=== PATIENT | male | born 1980 | race Caucasian/White ===

== ENCOUNTER 2020-01-22 20:04 | Observation (INO) | payer OTHER ==
[2020-01-22] MEDS ORDERED: ALBUTEROL HFA INHALER INHALATION STA (20:26)
--- NOTE | 2020-01-22 20:26 | ED ---
Fever HPI - General Chief Complaint: Fever Stated Complaint: Fever/Cough/SOB Time Seen by Provider: 01/22/20 20:18 Source: patient, RN notes reviewed, old records reviewed Mode of arrival: wheelchair Limitations: no limitations - History of Present Illness Initial Comments: This patient's a 39-year-old male with history of obesity presents emergency dep artment today with complaints of chest pain shortness of breath and fever. Patient reports symptoms became worse today. Patient reports that he is being treated for an abscess underneath his right axilla and has been on 2 doses of Bactrim. Patient reports that he is concerned that he may have Covid 19 infection. He reports that he does not know any known exposures to covid that at this time. Patient reports that he did take Motrin and Tylenol earlier today his last dose of Tylenol was in our prior to arrival. Patient reports he is a nonsmoker. - Related Data Home Medications Medication Instructions Recorded Confirmed Cyclobenzaprine [Flexeril] 10 mg PO TID PRN 01/22/20 01/22/20 Ergocalciferol [Vitamin D2] 50,000 unit PO MO 01/22/20 01/22/20 Ibuprofen [Motrin] 800 mg PO TID PRN 01/22/20 01/22/20 Levothyroxine Sodium [Synthroid] 50 mcg PO DAILY 01/22/20 01/22/20 Sulfamethox-Tmp 800-160Mg [Bactrim 1 tab PO BID 01/22/20 01/22/20 DS 800-160 mg] buPROPion XL [Wellbutrin Xl] 300 mg PO DAILY 01/22/20 01/22/20 Allergies Allergy/AdvReac Type Severity Reaction Status Date / Time No Known Allergies Allergy Verified 01/22/20 21:55 Review of Systems ROS Statement: Those systems with pertinent positive or pertinent negative responses have been documented in the HPI. ROS Other: All systems not noted in ROS Statement are negative. Past Medical History Past Medical History: Thyroid Disorder History of Any Multi-Drug Resistant Organisms: None Reported Past Surgical History: No Surgical Hx Reported Additional Past Surgical History / Comment(s): wisdom teeth extraction Past Psychological History: Bipolar Smoking Status: Current some day smoker Past Alcohol Use History: Occasional Past Drug Use History: Marijuana General Exam - General Exam Comments Initial Comments: 39-year-old male. Alert and oriented 3. Patient is diaphoretic. Somewhat la bored breathing. Patient is morbidly obese. Limitations: no limitations General appearance: alert, in no apparent distress Head exam: Present: atraumatic, normocephalic, normal inspection Eye exam: Present: normal appearance, PERRL, EOMI. Absent: scleral icterus, conjunctival injection, periorbital swelling ENT exam: Present: normal exam, mucous membranes moist Neck exam: Present: normal inspection. Absent: tenderness, meningismus, lymphadenopathy Respiratory exam: Present: wheezes, decreased breath sounds, other (Patient has a small area of erythema and right axilla with abscess. He reports he's had some drainage.. ). Absent: normal lung sounds bilaterally, respiratory distress, rales, rhonchi, stridor Cardiovascular Exam: Present: regular rate, normal rhythm, normal heart sounds. Absent: systolic murmur, diastolic murmur, rubs, gallop, clicks GI/Abdominal exam: Present: soft, normal bowel sounds. Absent: distended, tenderness, guarding, rebound, rigid Extremities exam: Present: normal inspection, full ROM, normal capillary refill. Absent: tenderness, pedal edema, joint swelling, calf tenderness Back exam: Present: normal inspection Neurological exam: Present: alert, oriented X3, CN II-XII intact Psychiatric exam: Present: normal affect, normal mood Skin exam: Present: warm, dry, intact, normal color. Absent: rash Course Vital Signs 01/22/20 01/22/20 01/22/20 20:13 22:00 23:05 Temperature 103 F H 100.4 F H Pulse Rate 121 H 94 102 H Respiratory 22 20 20 Rate Blood Pressure 158/64 115/86 151/85 O2 Sat by Pulse 98 98 97 Oximetry Medical Decision Making - Medical Decision Making 39-year-old male arrives to the emergency department with chest pain shortness of breath and a fever 103 upon arrival. He is given Motrin Tylenol prior to arrival. His symptoms started today. At this time patient's chest x-ray shows evidence of infiltrates versus atelectasis. Rapid Covid 19 test is negative. Patient has a negative d-dimer. Patient continued to be somewhat tachycardic 110 bpm his fever is breaking. Patient has a white blood cell count of 17,000. With concern for pneumonia and sepsis with labs and vital signs Patient was started on Rocephin and azithromycin. I did discuss with the Patient he could still likely have a viral pneumonia. Patient case discussed with Dr. Melo, room recommends admission with patient's clinical history and comorbidity of obesity. Pt IV is in R foot due to poor vascular access. Dr. Melo discussed with Dr. Nielsen in AM. - Lab Data Result diagrams: 01/22/20 21:48 01/22/20 21:48 Lab Results 01/22/20 01/22/20 01/22/20 Range/Units 21:01 21:48 21:48 WBC 17.9 H (3.8-10.6) k/uL RBC 4.68 (4.30-5.90) m/uL Hgb 14.6 (13.0-17.5) gm/dL Hct 42.4 (39.0-53.0) % MCV 90.5 (80.0-100.0) fL MCH 31.1 (25.0-35.0) pg MCHC 34.4 (31.0-37.0) g/dL RDW 13.2 (11.5-15.5) % Plt Count 323 (150-450) k/uL MPV 7.0 Neutrophils % 80 % Lymphocytes % 12 % Monocytes % 6 % Eosinophils % 1 % Basophils % 0 % Neutrophils # 14.2 H (1.3-7.7) k/uL Lymphocytes # 2.1 (1.0-4.8) k/uL Monocytes # 1.1 H (0-1.0) k/uL Eosinophils # 0.1 (0-0.7) k/uL Basophils # 0.1 (0-0.2) k/uL PT (9.0-12.0) sec INR (<1.2) APTT (22.0-30.0) sec D-Dimer (<0.60) mg/L FEU Sodium (137-145) mmol/L Potassium (3.5-5.1) mmol/L Chloride (98-107) mmol/L Carbon Dioxide (22-30) mmol/L Anion Gap mmol/L BUN (9-20) mg/dL Creatinine (0.66-1.25) mg/dL Est GFR (CKD-EPI)AfAm (>60 ml/min/1.73 sqM) Est GFR (CKD-EPI)NonAf (>60 ml/min/1.73 sqM) Glucose (74-99) mg/dL Plasma Lactic Acid David 1.2 (0.7-2.0) mmol/L Calcium (8.4-10.2) mg/dL Total Bilirubin (0.2-1.3) mg/dL AST (17-59) U/L ALT (4-49) U/L Alkaline Phosphatase (38-126) U/L Lactate Dehydrogenase (313-618) U/L C-Reactive Protein (<10.0) mg/L Total Protein (6.3-8.2) g/dL Albumin (3.5-5.0) g/dL Coronavirus (PCR) Not Detected (Not Detectd) 01/22/20 01/22/20 Range/Units 21:48 21:48 WBC (3.8-10.6) k/uL RBC (4.30-5.90) m/uL Hgb (13.0-17.5) gm/dL Hct (39.0-53.0) % MCV (80.0-100.0) fL MCH (25.0-35.0) pg MCHC (31.0-37.0) g/dL RDW (11.5-15.5) % Plt Count (150-450) k/uL MPV Neutrophils % % Lymphocytes % % Monocytes % % Eosinophils % % Basophils % % Neutrophils # (1.3-7.7) k/uL Lymphocytes # (1.0-4.8) k/uL Monocytes # (0-1.0) k/uL Eosinophils # (0-0.7) k/uL Basophils # (0-0.2) k/uL PT 11.4 (9.0-12.0) sec INR 1.1 (<1.2) APTT 26.9 (22.0-30.0) sec D-Dimer 0.35 (<0.60) mg/L FEU Sodium 133 L (137-145) mmol/L Potassium 4.0 (3.5-5.1) mmol/L Chloride 101 (98-107) mmol/L Carbon Dioxide 26 (22-30) mmol/L Anion Gap 6 mmol/L BUN 9 (9-20) mg/dL Creatinine 0.95 (0.66-1.25) mg/dL Est GFR (CKD-EPI)AfAm >90 (>60 ml/min/1.73 sqM) Est GFR (CKD-EPI)NonAf >90 (>60 ml/min/1.73 sqM) Glucose 115 H (74-99) mg/dL Plasma Lactic Acid David (0.7-2.0) mmol/L Calcium 9.1 (8.4-10.2) mg/dL Total Bilirubin 0.9 (0.2-1.3) mg/dL AST 24 (17-59) U/L ALT 52 H (4-49) U/L Alkaline Phosphatase 96 (38-126) U/L Lactate Dehydrogenase 651 H (313-618) U/L C-Reactive Protein 81.3 H (<10.0) mg/L Total Protein 7.2 (6.3-8.2) g/dL Albumin 3.9 (3.5-5.0) g/dL Coronavirus (PCR) (Not Detectd) Disposition Clinical Impression: Pneumonia, Sepsis Disposition: ADMITTED IP TO THIS HOSP Condition: Stable Is patient prescribed a controlled substance at d/c from ED?: No Referrals: None,Stated [REFERRING] - 1-2 days
[2020-01-22] MEDS ORDERED: SODIUM CHLORIDE 0.9% 1,000 ML IV ONE (20:28)
[2020-01-22] MEDS ORDERED: IBUPROFEN 600 MG TAB PO STA (20:51)
--- NOTE | 2020-01-22 21:18 | XR ---
EXAMINATION TYPE: XR chest 1V portable DATE OF EXAM: 01/22/2020 COMPARISON: NONE HISTORY: Fever and cough. TECHNIQUE: Single frontal view of the chest is obtained. FINDINGS: There are mild bibasilar hazy opacities. No significant pleural effusion, or pneumothorax seen. The cardiac silhouette size is within normal limits. The osseous structures are intact. IMPRESSION: Mild atelectasis versus infiltrates.
[2020-01-22 22:02] LABS: Basophils # (A) 0.1 k/uL (0-0.2); Basophils % (A) 0 %; Eosinophils # (A) 0.1 k/uL (0-0.7); Eosinophils % (A) 1 %; HCT 42.4 % (39.0-53.0); HGB 14.6 gm/dL (13.0-17.5); Lymphocytes # (A) 2.1 k/uL (1.0-4.8); Lymphocytes % (A) 12 %; MCH 31.1 pg (25.0-35.0); MCHC 34.4 g/dL (31.0-37.0); MCV 90.5 fL (80.0-100.0); Monocytes # (A) 1.1 k/uL (0-1.0); Monocytes % (A) 6 %; Neutrophils # (A) 14.2 k/uL (1.3-7.7); Neutrophils % (A) 80 %; Platelet Count 323 k/uL (150-450); RBC 4.68 m/uL (4.30-5.90); RDW 13.2 % (11.5-15.5); WBC 17.9 k/uL (3.8-10.6)
[2020-01-22 22:09] LABS: ALT 52 U/L (4-49); AST 24 U/L (17-59); African American GFR (CKD) >90 (>60 ml/min/1.73 sqM); Albumin 3.9 g/dL (3.5-5.0); Alkaline Phosphatase 96 U/L (38-126); Anion Gap 6 mmol/L; Blood Urea Nitrogen 9 mg/dL (9-20); C Reactive Protein 81.3 mg/L (<10.0); Calcium 9.1 mg/dL (8.4-10.2); Carbon Dioxide 26 mmol/L (22-30); Chloride 101 mmol/L (98-107); Glucose 115 mg/dL (74-99); LDH 651 U/L (313-618); Non-African American GFR(CKD) >90 (>60 ml/min/1.73 sqM); Sodium 133 mmol/L (137-145); Total Bilirubin 0.9 mg/dL (0.2-1.3); Total Protein 7.2 g/dL (6.3-8.2)
[2020-01-22] MEDS ORDERED: cefTRIAXone IN SWFI 1,000 MG/10 ML SYRINGE IVP STA (22:23)
[2020-01-22 22:41] LABS: D-Dimer 0.35 mg/L FEU (<0.60); INR 1.1 (<1.2); Partial Thromboplastin Time 26.9 sec (22.0-30.0); Prothrombin Time 11.4 sec (9.0-12.0)
[2020-01-23] MEDS ORDERED: AZITHROMYCIN 500 MG in SODIUM CHLORIDE 0.9% 250 ML IVPB STA ×2
[2020-01-23] MEDS ORDERED: ALBUTEROL NEBULIZED 2.5 MG/3 ML INHALATION PRN
[2020-01-23] MEDS ORDERED: PNEUMONIA PROTOCOL UTILIZED 1 EACH MISC PO PRN
[2020-01-23] MEDS ORDERED: SODIUM CHLORIDE 0.9% 2,000 ML IV ONE (00:06)
[2020-01-23] MEDS: SODIUM CHLORIDE 0.9% 1,000 ML IV SCH ×4 (00:38→23:05)
[2020-01-23 09:52] LABS: Ferritin 180.1 ng/mL (22.0-322.0)
[2020-01-23] MEDS ORDERED: CYCLOBENZAPRINE 10 MG TAB PO PRN (10:04)
[2020-01-23] MEDS ORDERED: SULFAMETHOX-TMP 800-160MG 1 EACH TAB PO SCH (10:15)
[2020-01-23] MEDS: LEVOTHYROXINE 50 MCG TAB PO SCH (10:49)
[2020-01-23] MEDS: buPROPion XL 300 MG TAB.ER.24H PO SCH (10:50)
[2020-01-23] MEDS ORDERED: AMPICILLIN-SULBACTAM 1.5 GM in SODIUM CHLORIDE 0.9% 50 ML IVPB SCH (13:45)
[2020-01-23] MEDS: ENOXAPARIN 40 MG/0.4 ML SYRINGE SQ SCH (16:43)
[2020-01-23] MEDS ORDERED: VANCOMYCIN IV PER PHARMACY 1 EACH MISC MISCELLANE PRN (16:56)
--- NOTE | 2020-01-23 17:08 | P.HPIM ---
History of Present Illness H&P Date: 01/23/20 Chief Complaint: Fever History of presenting complaint: This is a 39-year-old patient who follows with Dr. Ferreira. Chronic stable medical conditions include bipolar, hypothyroid, lower back pain, spasms in the lower back. Patient habits abscess in the right arm. And has been on Bactrim DS for 3 days. Given to the family doctor. Patient presents with a fever of 104 chills at home activity became confused at home. Slight headache. No change in smell or taste. No diarrhea. Quite tender in the right armpit. Patient does smoke cigarettes. Occasional marijuana. Review of systems: GEN.: Fever chills EYES: None HEENT: None NECK: None RESPIRATORY: None CARDIOVASCULAR: None GASTROINTESTINAL: None GENITOURINARY: None MUSCULOSKELETAL: None LYMPHATICS: None HEMATOLOGICAL: None PSYCHIATRY: [Confused at home NEUROLOGICAL: None Past medical history to include: Bipolar disorder, hypothyroid, low back pain, back pain and spasms Social history: Lives with his girlfriend. Unemployed. Smokes up pack of cigarettes every week. Occasional marijuana. Occasional alcohol. Physical examination: VITAL SIGNS: 103, 121, 22, 1 58 / 64, 98% room air GENERAL: BMI 59, laying in bed, tired appearing awake. EYES: Pupils equal. Conjunctiva normal. HEENT: External appearance of nose and ears normal, oral cavity grossly normal. NECK: JVD unable to assess; masses not palpable. CHEST wall: Right armpit, abscess, boil HEART: First and second heart sounds are normal; no edema. LUNGS: Respiratory rate normal; distant breath sounds. ABDOMEN: Soft, nontender, liver spleen not palpable, no masses palpable. PSYCH: Alert and oriented x3; mood and affect normal. NEUROLOGICAL: Cranial nerves grossly intact; no facial asymmetry, power and sensation grossly intact. LYMPHATICS: No lymph nodes palpable in the axilla and neck INVESTIGATIONS, reviewed in the clinical context: White count 7.9 hemoglobin 14.6 platelets 323 increased neutrophils potassium 4.0 creatinine 0.95 CRP 81.3 pro-calcitonin 0.11 Coronavirus P/Cr-not detected EKG tracing personally reviewed by me-normal sinus rhythm Chest x-ray film personally reviewed by me-questionable infiltrate, decreased penetration Assessment: -This is a patient was presented with a septic picture some delirium likely from his abscess in the right armpit for which she has been on Bactrim for 3 days. Patient does not really have any symptoms. -Morbid obesity BMI 59 -Bipolar disorder -Hypothyroid -Chronic low back pain -Lower back muscle spasms -Chronic nicotine dependence patient cigarette smoker Plan: Patient be started on vancomycin. Home medications to be resumed. We'll send a blood cultures. General surgery to be consulted. DVT prophylaxis. Past Medical History Past Medical History: Thyroid Disorder History of Any Multi-Drug Resistant Organisms: None Reported Past Surgical History: No Surgical Hx Reported Additional Past Surgical History / Comment(s): wisdom teeth extraction Past Psychological History: Bipolar Smoking Status: Current some day smoker Past Alcohol Use History: Occasional Past Drug Use History: Marijuana Medications and Allergies Home Medications Medication Instructions Recorded Confirmed Type Cyclobenzaprine [Flexeril] 10 mg PO TID PRN 01/22/20 01/22/20 History Ergocalciferol [Vitamin D2] 50,000 unit PO MO 01/22/20 01/22/20 History Ibuprofen [Motrin] 800 mg PO TID PRN 01/22/20 01/22/20 History Levothyroxine Sodium [Synthroid] 50 mcg PO DAILY 01/22/20 01/22/20 History Sulfamethox-Tmp 800-160Mg [Bactrim 1 tab PO BID 01/22/20 01/22/20 History DS 800-160 mg] buPROPion XL [Wellbutrin Xl] 300 mg PO DAILY 01/22/20 01/22/20 History Allergies Allergy/AdvReac Type Severity Reaction Status Date / Time No Known Allergies Allergy Verified 01/22/20 21:55 Physical Exam Vitals: Vital Signs Temp Pulse Resp BP Pulse Ox 01/23/20 08:07 99.6 F 102 H 19 119/78 98 01/23/20 06:00 102 H 19 129/79 98 01/23/20 05:00 99 20 155/81 97 01/23/20 03:00 105 H 20 141/96 98 01/23/20 02:00 97.9 F 102 H 20 140/84 98 01/23/20 01:00 98.3 F 104 H 20 135/103 97 01/23/20 00:00 91 20 160/104 97 01/22/20 23:05 100.4 F H 102 H 20 151/85 97 01/22/20 22:00 94 20 115/86 98 01/22/20 20:13 103 F H 121 H 22 158/64 98 Intake and Output 01/22/20 01/23/20 01/23/20 22:59 06:59 14:59 Other: Weight 197.313 kg Results CBC & Chem 7: 01/22/20 21:48 01/22/20 21:48 Labs: Abnormal Lab Results - Last 24 Hours (Table) 01/22/20 01/22/20 Range/Units 21:48 21:48 WBC 17.9 H (3.8-10.6) k/uL Neutrophils # 14.2 H (1.3-7.7) k/uL Monocytes # 1.1 H (0-1.0) k/uL Sodium 133 L (137-145) mmol/L Glucose 115 H (74-99) mg/dL ALT 52 H (4-49) U/L Lactate Dehydrogenase 651 H (313-618) U/L C-Reactive Protein 81.3 H (<10.0) mg/L
--- NOTE | 2020-01-23 17:10 | P.CNPUL ---
History of Present Illness Consult date: 01/23/20 Reason for consult: dyspnea History of present illness: This is a 39-year-old patient. I was asked even with this patient for pneumonia and shortness of breath. The patient is morbidly obese. He has a a body mass index of 59. He has chronically short of breath and he attributes this to his obesity. He was also having a problem with a right axillary abscess for which the patient was taking Bactrim on outpatient basis. He came to the hospital and he was febrile with a temperature of 103F. The patient was febrile. Apparently the abscess that was on limited right axillary been treated with a course of Bactrim to his primary care physician. He was concerned about her coronavirus community related infection. He was checked in the emergency department testing was essentially negative. His chest x-ray shows no acute abnormalities. Is currently pulse oximetry 9497% on room air oxygen. He is smoking cigarettes on and off. He denies having any obstructive sleep apnea although he does have the typical features. No 70 chronic lung disease. No recurrent pneumonias. No reported aspiration. He has history of hypothyroidism. His white cell count is 17.4 with hemoglobin 14.6. Normal lymphopenia. Platelet counts are within normal at 323. Correlation is within normal limits and the patient had a d-dimer of 0.3. The electrolytes are all within normal limits. His lactic acid level was at 1.2 and later on the abdominal 1.1. His troponin level is elevated at 0.11 and a CRP of 81 with an LDH of 651. AST and ALP were essentially within normal limits with a bilirubin of 0.9. He is hemodynamically stable. No tachycardia. No hypotension. Review of Systems Constitutional: Reports daytime sleepiness, Reports fever Eyes: denies as per HPI, denies blurred vision, denies bulging eye, denies decreased vision, denies diplopia, denies discharge, denies dry eye, denies irritation, denies itching, denies pain, denies photophobia, denies loss of peripheral vision, denies loss of vision, denies tunnel vision/blind spots Ears: deny: decreased hearing, ear discharge, earache, tinnitus Ears, nose, mouth and throat: Reports as per HPI Breasts: absent: as per HPI, gynecomastia Cardiovascular: Reports as per HPI, Reports decreased exercise tolerance Respiratory: Reports as per HPI Gastrointestinal: Reports as per HPI Genitourinary: Reports as per HPI Musculoskeletal: Reports as per HPI Musculoskeletal: absent: ankle pain, ankle stiffness, ankle swelling, as per HPI, elbow pain, elbow stiffness, elbow swelling, foot pain, foot stiffness, foot swelling, hand pain, hand stiffness, hand swelling, hip pain, hip stiffness, hip swelling, knee pain, knee stiffness, knee swelling, shoulder pain, shoulder stiffness, shoulder swelling, wrist pain, wrist stiffness, wrist swelling Integumentary: Reports as per HPI (Axillary abscess) Neurological: Reports as per HPI Psychiatric: Reports as per HPI Endocrine: Reports as per HPI Hematologic/Lymphatic: Reports as per HPI Past Medical History Past Medical History: Thyroid Disorder Additional Past Medical History / Comment(s): bipolar, ADHD, obesity History of Any Multi-Drug Resistant Organisms: None Reported Past Surgical History: No Surgical Hx Reported Additional Past Surgical History / Comment(s): wisdom teeth extraction Past Psychological History: Bipolar Smoking Status: Current some day smoker Past Alcohol Use History: Occasional Past Drug Use History: Marijuana Medications and Allergies Home Medications Medication Instructions Recorded Confirmed Type Cyclobenzaprine [Flexeril] 10 mg PO TID PRN 01/22/20 01/22/20 History Ergocalciferol [Vitamin D2] 50,000 unit PO MO 01/22/20 01/22/20 History Ibuprofen [Motrin] 800 mg PO TID PRN 01/22/20 01/22/20 History Levothyroxine Sodium [Synthroid] 50 mcg PO DAILY 01/22/20 01/22/20 History Sulfamethox-Tmp 800-160Mg [Bactrim 1 tab PO BID 01/22/20 01/22/20 History DS 800-160 mg] buPROPion XL [Wellbutrin Xl] 300 mg PO DAILY 01/22/20 01/22/20 History Allergies Allergy/AdvReac Type Severity Reaction Status Date / Time No Known Allergies Allergy Verified 01/22/20 21:55 Physical Exam Vitals: Vital Signs Temp Pulse Pulse Resp BP BP Pulse Ox 01/23/20 16:26 99.8 F H 117 H 18 135/85 95 01/23/20 15:27 99.6 F 94 19 149/79 98 01/23/20 15:00 94 19 149/79 98 01/23/20 14:00 94 19 98 01/23/20 13:00 94 19 139/103 98 01/23/20 12:00 94 19 139/103 98 01/23/20 11:00 98 19 135/77 98 01/23/20 10:00 102 H 19 143/84 98 01/23/20 09:00 18 98 01/23/20 08:07 99.6 F 102 H 19 119/78 98 01/23/20 06:00 102 H 19 129/79 98 01/23/20 05:00 99 20 155/81 97 01/23/20 03:00 105 H 20 141/96 98 01/23/20 02:00 97.9 F 102 H 20 140/84 98 01/23/20 01:00 98.3 F 104 H 20 135/103 97 01/23/20 00:00 91 20 160/104 97 01/22/20 23:05 100.4 F H 102 H 20 151/85 97 01/22/20 22:00 94 20 115/86 98 01/22/20 20:13 103 F H 121 H 22 158/64 98 Intake and Output 01/23/20 01/23/20 01/23/20 06:59 14:59 22:59 Other: Weight 197.313 kg Morbidly obese, not having any respiratory distress, BMI 59 currently on room air oxygen Head exam was generally normal. There was no scleral icterus or corneal arcus. Mucous membranes were moist. Neck was supple and without jugular venous distension, thyromegaly, or carotid bruits. Carotids were easily palpable bilaterally. There was no adenopathy. Mallampati class IV Lungs were clear to auscultation and percussion, and with normal diaphragmatic excursion. No wheezes or rales were noted. Breath sounds are quite diminished in lung bases related to his morbid obesity. Cardiac exam revealed the PMI to be normally situated and sized. The rhythm was regular and no extrasystoles were noted during several minutes of auscultation. The first and second heart sounds were normal and physiologic splitting of the second heart sound was noted. There were no murmurs, rubs, clicks, or gallops. Abdomen is soft and the organs cannot be palpated as the patient is morbidly obese. No direct tenderness in multivessel guarding. Examination of the extremities revealed easily palpable radial, femoral and pedal pulses. There was no cyanosis, clubbing or edema. Examination of the skin under his right armpit shows that the patient has undergone laser shaving and the hair and armpit is quite shaved to its bruits. There is an area of erythema and firmness with possibly some loculation in the right axillary area. Underlying sepsis cannot be completely slough this. There is also some tenderness upon palpation. There is some erythema. No externalization of any purulent material upon doing a bedside I&D. Results - Laboratory Findings CBC and BMP: 01/22/20 21:48 01/22/20 21:48 PT/INR, D-dimer PT 11.4 sec (9.0-12.0) 01/22/20 21:48 INR 1.1 (<1.2) 01/22/20 21:48 D-Dimer 0.35 mg/L FEU (<0.60) 01/22/20 21:48 Abnormal lab findings: Abnormal Labs 01/22/20 01/22/20 01/22/20 21:48 21:48 21:48 WBC 17.9 H Neutrophils # 14.2 H Monocytes # 1.1 H Sodium 133 L Glucose 115 H ALT 52 H Lactate Dehydrogenase 651 H C-Reactive Protein 81.3 H Procalcitonin 0.11 H - Diagnostic Findings Chest x-ray: image reviewed Assessment and Plan Plan: 1 shortness of breath, chronic, obesity related, pneumonia is doubtful. No evidence of any hypoxemia 2 fever, rule out underlying bacterial infection. Focused on his elevated. Suspect axillary skin cellulitis and possibly some underlying axillary abscess formation. 3 morbid obesity with a BMI 59 4 hypothyroidism Plan Obtain an ultrasound of the right axilla looking for any significant fluid collection or abscess obtain a general surgical consultation cover the patient with a combination of Unasyn and vancomycin obtain blood cultures Pulmonary status is stable for now Outpatient follow-up and evaluation for sleep apnea Coronavirus Covid 19 testing was negative We'll see as needed
[2020-01-23] MEDS ORDERED: VANCOMYCIN 2,500 MG in SODIUM CHLORIDE 0.9% 500 ML 500 ML IVPB ONE ×2 (17:30→18:00)
[2020-01-23] MEDS: NICOTINE 7MG/24HR PATCH TRANSDERM SCH (18:14)
--- NOTE | 2020-01-23 19:50 | US ---
EXAMINATION TYPE: US axilla RT DATE OF EXAM: 01/23/2020 COMPARISON: NONE CLINICAL HISTORY: axillary abscess ??. Right axilla pain, swelling and redness x couple days, fever Right axilla: no mass or fluid collection seen at this time IMPRESSION: No sonographic evidence of significant mass or fluid collection in the right axilla.
[2020-01-23] MEDS ORDERED: AZITHROMYCIN 500 MG TAB PO SCH (21:00)
[2020-01-23 21:26] LABS: African American GFR (CKD) >90 (>60 ml/min/1.73 sqM); Non-African American GFR(CKD) >90 (>60 ml/min/1.73 sqM)
[2020-01-23] MEDS: AMPICILLIN-SULBACTAM 1.5 GM in SODIUM CHLORIDE 0.9% 50 ML IVPB SCH (23:04)
[2020-01-24] MEDS: AMPICILLIN-SULBACTAM 1.5 GM in SODIUM CHLORIDE 0.9% 50 ML IVPB SCH ×4 (05:01→22:19)
[2020-01-24] MEDS: VANCOMYCIN 2,500 MG in SODIUM CHLORIDE 0.9% 500 ML 500 ML IVPB SCH ×2 (06:06→17:41)
[2020-01-24] MEDS: SODIUM CHLORIDE 0.9% 1,000 ML IV SCH ×3 (06:08→22:20)
[2020-01-24] MEDS: LEVOTHYROXINE 50 MCG TAB PO SCH (06:08)
[2020-01-24 07:54] LABS: Basophils # (A) 0.1 k/uL (0-0.2); Basophils % (A) 0 %; Eosinophils # (A) 0.2 k/uL (0-0.7); Eosinophils % (A) 1 %; HCT 43.1 % (39.0-53.0); HGB 14.7 gm/dL (13.0-17.5); Lymphocytes # (A) 2.1 k/uL (1.0-4.8); Lymphocytes % (A) 11 %; MCH 31.1 pg (25.0-35.0); MCHC 34.1 g/dL (31.0-37.0); MCV 91.3 fL (80.0-100.0); Mean Platelet Volume 7.3; Monocytes # (A) 1.1 k/uL (0-1.0); Monocytes % (A) 6 %; Neutrophils % (A) 80 %; Platelet Count 270 k/uL (150-450); RBC 4.72 m/uL (4.30-5.90); RDW 13.2 % (11.5-15.5); WBC 18.8 k/uL (3.8-10.6)
[2020-01-24] MEDS: NICOTINE 7MG/24HR PATCH TRANSDERM SCH (08:45)
[2020-01-24] MEDS: ENOXAPARIN 40 MG/0.4 ML SYRINGE SQ SCH (08:45)
[2020-01-24] MEDS: buPROPion XL 300 MG TAB.ER.24H PO SCH (08:45)
--- NOTE | 2020-01-24 09:01 | XR ---
EXAMINATION TYPE: XR chest 2V DATE OF EXAM: 01/24/2020 COMPARISON: 01/22/2020 INDICATION: Pneumonia TECHNIQUE: Frontal and lateral views of the chest are obtained. FINDINGS: The heart size is normal. The pulmonary vasculature is normal. The lungs are clear. IMPRESSION: 1. No acute pulmonary process.
[2020-01-24 11:06] LABS: Non-African American GFR(CKD) 108.7 (60.0-200.0)
[2020-01-24] MEDS: ACETAMINOPHEN TAB 500 MG TAB PO PRN ×2 (13:50→22:19)
--- NOTE | 2020-01-24 15:45 | P.PN ---
Subjective Progress Note Date: 01/24/20 Principal diagnosis: Shortness of breath, chronic, related to obesity, no clear evidence of pneumonia This is a 39-year-old patient. I was asked even with this patient for pneumonia and shortness of breath. The patient is morbidly obese. He has a a body mass index of 59. He has chronically short of breath and he attributes this to his obesity. He was also having a problem with a right axillary abscess for which the patient was taking Bactrim on outpatient basis. He came to the hospital and he was febrile with a temperature of 103F. The patient was febrile. Apparen tly the abscess that was on limited right axillary been treated with a course of Bactrim to his primary care physician. He was concerned about her coronavirus community related infection. He was checked in the emergency department testing was essentially negative. His chest x-ray shows no acute abnormalities. Is currently pulse oximetry 9497% on room air oxygen. He is smoking cigarettes on and off. He denies having any obstructive sleep apnea although he does have the typical features. No 70 chronic lung disease. No recurrent pneumonias. No reported aspiration. He has history of hypothyroidism. His white cell count is 17.4 with hemoglobin 14.6. Normal lymphopenia. Platelet counts are within normal at 323. Correlation is within normal limits and the patient had a d- dimer of 0.3. The electrolytes are all within normal limits. His lactic acid level was at 1.2 and later on the abdominal 1.1. His troponin level is elevated at 0.11 and a CRP of 81 with an LDH of 651. AST and ALP were essentially within normal limits with a bilirubin of 0.9. He is hemodynamically stable. No tachycardia. No hypotension. On 01/24/2020 patient seen in follow-up on medical surgical floor. He is resting comfortably in bed, he is on room air, denies any worsening dyspnea, pulse ox is 94% on room air, no cough or congestion, no completing the chest pain, his been afebrile, hemodynamically has been stable, lung sounds are clear, diminished at the bases, his workup did not show any clear evidence of pneumonia. Follow-up chest x-ray was obtained showing no acute pulmonary process. He is on Unasyn and vancomycin for abscess in his right axillary area Objective - Vital Signs Vital signs: Vital Signs Temp 98.3 F 01/24/20 09:56 Pulse 101 H 01/24/20 09:56 Resp 20 01/24/20 09:56 BP 128/73 01/24/20 09:56 Pulse Ox 94 L 01/24/20 09:56 Intake & Output 01/23/20 01/24/20 01/24/20 18:59 06:59 18:59 Intake Total 1040 550 Balance 1040 550 Weight 197.313 kg Intake: Intake, IV Titration 1040 550 Amount Ampicillin-Sulbactam 1.5 50 gm In Sodium Chloride 0.9 % 50 ml @ 100 mls/hr IVPB Q6H [facility] Rx#:[id number] Sodium Chloride 0.9% 1, 1040 000 ml @ 130 mls/hr IV . Q7H42M [facility] Rx#:[id number] Vancomycin 2,500 mg In 500 Sodium Chloride 0.9% 500 ml 500 ml @ 167 mls/hr IVPB Q12H [facility] Rx#: [id number] Other: Voiding Method Urinal Urinal # Voids 4 - Exam GENERAL EXAM: Alert, very pleasant, obese white male, on room air, and the pulse ox of 94% comfortable in no apparent distress. HEAD: Normocephalic/atraumatic. EYES: Normal reaction of pupils, equal size. Conjunctiva pink, sclera white. NOSE: Clear with pink turbinates. THROAT: No erythema or exudates. NECK: No masses, no JVD, no thyroid enlargement, no adenopathy. CHEST: No chest wall deformity. Symmetrical expansion. LUNGS: Equal air entry with no crackles, wheeze, rhonchi or dullness. CVS: Regular rate and rhythm, normal S1 and S2, no gallops, no murmurs, no rubs ABDOMEN: Soft, nontender. No hepatosplenomegaly, normal bowel sounds, no guarding or rigidity. EXTREMITIES: No clubbing, no edema, no cyanosis, 2+ pulses and upper and lower extremities. MUSCULOSKELETAL: Muscle strength and tone normal. SPINE: No scoliosis or deformity SKIN: Abscess in the right axillary area with induration under the skin, draining purulent drainage with squeezing of the indurated area CENTRAL NERVOUS SYSTEM: Alert and oriented -3. No focal deficits, tone is normal in all 4 extremities. PSYCHIATRIC: Alert and oriented -3. Appropriate affect. Intact judgment and insight. - Labs CBC & Chem 7: 11/23/20 07:32 01/24/20 07:32 Labs: Abnormal Lab Results - Last 24 Hours (Table) 01/24/20 Range/Units 07:32 WBC 18.8 H (3.8-10.6) k/uL Neutrophils # 15.0 H (1.3-7.7) k/uL Monocytes # 1.1 H (0-1.0) k/uL Microbiology - Last 24 Hours (Table) 01/22/20 21:48 Blood Culture - Preliminary Blood No Growth after 24 hours Assessment and Plan Plan: Assessment: 1 shortness of breath, chronic, obesity related, pneumonia is doubtful. No evidence of any hypoxemia 2 fever, rule out underlying bacterial infection. Focused on his elevated. Suspect axillary skin cellulitis and possibly some underlying axillary abscess formation. 3 morbid obesity with a BMI 59 4 hypothyroidism Plan: No clear evidence of pneumonia, follow-up chest x-ray showed no acute pulmonary process, signs have been stable, obtain a general surgical consultation in view Right axillary abscess that is draining purulent drainage. Continue with current antibiotics, patient will need outpatient evaluation for sleep apnea. Chronic service will sign off and follow on as-needed basis I performed a history & physical examination of the patient and discussed their management with my nurse practitioner, Adelina Meyer. I reviewed the nurse practitioner's note and agree with the documented findings and plan of care. Lung sounds are positive for diminished breath sounds. The findings and the impression was discussed with the patient. I attest to the documentation by the nurse practitioner. Time with Patient: Less than 30
--- NOTE | 2020-01-24 15:50 | P.GSCN ---
History of Present Illness Consult date: 01/24/20 History of present illness: Patient presented to hospital with fever, cough and SOB. He states he has also had some pain and swelling in his right axilla he was on antibiotics for as an outpatient. This has been going on for two weeks. Past Medical History Past Medical History: Thyroid Disorder Additional Past Medical History / Comment(s): bipolar, ADHD, obesity History of Any Multi-Drug Resistant Organisms: None Reported Past Surgical History: No Surgical Hx Reported Additional Past Surgical History / Comment(s): wisdom teeth extraction Past Psychological History: Bipolar Smoking Status: Current some day smoker Past Alcohol Use History: Occasional Past Drug Use History: Marijuana Medications and Allergies Home Medications Medication Instructions Recorded Confirmed Type Cyclobenzaprine [Flexeril] 10 mg PO TID PRN 01/22/20 01/22/20 History Ergocalciferol [Vitamin D2] 50,000 unit PO MO 01/22/20 01/22/20 History Ibuprofen [Motrin] 800 mg PO TID PRN 01/22/20 01/22/20 History Levothyroxine Sodium [Synthroid] 50 mcg PO DAILY 01/22/20 01/22/20 History Sulfamethox-Tmp 800-160Mg [Bactrim 1 tab PO BID 01/22/20 01/22/20 History DS 800-160 mg] buPROPion XL [Wellbutrin Xl] 300 mg PO DAILY 01/22/20 01/22/20 History Allergies Allergy/AdvReac Type Severity Reaction Status Date / Time No Known Allergies Allergy Verified 01/22/20 21:55 Surgical - Exam Osteopathic Statement: *. No significant issues noted on an osteopathic structural exam other than those noted in the History and Physical/Consult. Vital Signs Temp Pulse Resp BP Pulse Ox 103 F H 121 H 22 158/64 98 01/22/20 20:13 01/22/20 20:13 01/22/20 20:13 01/22/20 20:13 01/22/20 20:13 - General well developed, well nourished, no distress - Cardiovascular Rhythm: regular - Integumentary erythema and induration right axilla no purulent drainage no fluctuance Results - Labs 01/24/20 07:32 01/24/20 07:32 Abnormal Lab Results - Last 24 Hours (Table) 01/24/20 Range/Units 07:32 WBC 18.8 H (3.8-10.6) k/uL Neutrophils # 15.0 H (1.3-7.7) k/uL Monocytes # 1.1 H (0-1.0) k/uL Microbiology - Last 24 Hours (Table) 01/22/20 21:48 Blood Culture - Preliminary Blood No Growth after 24 hours Diabetes panel 01/23/20 01/24/20 Range/Units 20:41 07:32 Creatinine 0.95 0.9 (0.66-1.25) mg/dL Pituitary panel 01/23/20 01/24/20 Range/Units 20:41 07:32 Creatinine 0.95 0.9 (0.66-1.25) mg/dL Adrenal panel 01/23/20 01/24/20 Range/Units 20:41 07:32 Creatinine 0.95 0.9 (0.66-1.25) mg/dL Assessment and Plan Assessment: Cellulitis right axilla Plan: US did not show any drainable fluid collection. This is consistent with physical exam. Cont abx for cellulitis. Medical management of fever and SOB per primary. No further surgical care planned
--- NOTE | 2020-01-24 23:36 | P.PN ---
Progress Note - Text Progress Note Date: 01/24/20 Chief Complaint: Fever History of presenting complaint: This is a 39-year-old patient who follows with Dr. Ferreira. Chronic stable medical conditions include bipolar, hypothyroid, lower back pain, spasms in the lower back. Patient habits abscess in the right arm. And has been on Bactrim DS for 3 days. Given to the family doctor. Patient presents with a fever of 104 chills at home activity became confused at home. Slight headache. No change in smell or taste. No diarrhea. Quite tender in the right armpit. Patient does smoke cigarettes. Occasional marijuana. admitted with abscess boils in the right arm. Causing sepsis. Having failed outpatient treatment with Bactrim.patient on IV vancomycin. Today-feeling much better.fevers have been down. No need for I&D per surgical team. Review of systems: Was done for constitutional, cardiovascular, GI, pulmonary. relevant finding as above Active Medications Acetaminophen (Acetaminophen Tab 500 Mg Tab) 500 mg PO Q4HR PRN PRN Reason: Fever and/ or Pain Last Admin: 01/24/20 22:19 Dose: 500 mg Documented by: Albuterol Sulfate (Albuterol Nebulized 2.5 Mg/3 Ml) 2.5 mg INHALATION RT-Q4H PRN PRN Reason: Shortness Of Breath Or Wheezing Bupropion HCl (Bupropion Xl 300 Mg Tab.Er.24h) 300 mg PO DAILY [facility] Last Admin: 01/24/20 08:45 Dose: 300 mg Documented by: Cyclobenzaprine HCl (Cyclobenzaprine 10 Mg Tab) 10 mg PO TID PRN PRN Reason: Muscle Spasm Enoxaparin Sodium (Enoxaparin 40 Mg/0.4 Ml Syringe) 40 mg SQ DAILY [facility] Last Admin: 01/24/20 08:45 Dose: 40 mg Documented by: Sodium Chloride (Saline 0.9%) 1,000 mls @ 130 mls/hr IV .Q7H42M [facility] Last Admin: 01/24/20 22:20 Dose: Not Given Documented by: Ampicillin Sodium/Sulbactam (Sodium 1.5 gm/ Sodium Chloride) 50 mls @ 100 mls/hr IVPB Q6H [facility] Last Admin: 01/24/20 22:19 Dose: 100 mls/hr Documented by: Vancomycin HCl 2,500 mg/ (Sodium Chloride) 500 mls @ 167 mls/hr IVPB Q12H [facility] Last Admin: 01/24/20 17:41 Dose: 167 mls/hr Documented by: Levothyroxine Sodium (Levothyroxine 50 Mcg Tab) 50 mcg PO DAILY@0630 [facility] Last Admin: 01/24/20 06:08 Dose: 50 mcg Documented by: Nicotine (Nicotine 7mg/24hr Patch) 1 patch TRANSDERM DAILY [facility] Last Admin: 01/24/20 08:45 Dose: 1 patch Documented by: Physical examination: VITAL SIGNS: 98.3, 101, 20, 128.73, 94% room air GENERAL: laying in bed, awake EYES: Pupils equal. Conjunctiva normal. HEENT: External appearance of nose and ears normal, oral cavity grossly normal. NECK: JVD unable to assess; masses not palpable. CHEST wall: Right armpit, boils HEART: First and second heart sounds are normal; no edema. LUNGS: Respiratory rate normal; distant breath sounds. ABDOMEN: Soft, nontender, liver spleen not palpable, no masses palpable. PSYCH: Alert and oriented x3; mood and affect normal. INVESTIGATIONS, reviewed in the clinical context: White count 7.9 hemoglobin 14.6 platelets 323 increased neutrophils potassium 4.0 creatinine 0.95 CRP 81.3 pro-calcitonin 0.11 Coronavirus P/Cr-not detected EKG tracing personally reviewed by me-normal sinus rhythm Chest x-ray film personally reviewed by me-questionable infiltrate, decreased penetration Assessment: -This is a patient was presented with a septic picture some delirium likely from his boils in the right armpit for which she has been on Bactrim for 3 days. . -Morbid obesity BMI 59 -Bipolar disorder -Hypothyroid -Chronic low back pain -Lower back muscle spasms -Chronic nicotine dependence patient cigarette smoker Plan: continue vancomycin. blood cultures negative below.recheck pro-calcitonin and a CBC in the morning.
[2020-01-25] MEDS: AMPICILLIN-SULBACTAM 1.5 GM in SODIUM CHLORIDE 0.9% 50 ML IVPB SCH ×2 (04:28→10:01)
[2020-01-25] MEDS: LEVOTHYROXINE 50 MCG TAB PO SCH (06:11)
[2020-01-25] MEDS: SODIUM CHLORIDE 0.9% 1,000 ML IV SCH ×2 (06:11→09:59)
[2020-01-25] MEDS: VANCOMYCIN 2,500 MG in SODIUM CHLORIDE 0.9% 500 ML 500 ML IVPB SCH (06:11)
[2020-01-25 06:39] VITALS: RESP 18
[2020-01-25] MEDS: ENOXAPARIN 40 MG/0.4 ML SYRINGE SQ SCH (07:39)
[2020-01-25] MEDS: NICOTINE 7MG/24HR PATCH TRANSDERM SCH (07:39)
[2020-01-25] MEDS: buPROPion XL 300 MG TAB.ER.24H PO SCH (07:39)
[2020-01-25 09:53] VITALS: BP 137/89; PULSE 95; TEMP 99.2
[2020-01-25 12:14] LABS: Basophils # (A) 0.1 k/uL (0-0.2); Basophils % (A) 0 %; Eosinophils # (A) 0.2 k/uL (0-0.7); Eosinophils % (A) 1 %; HCT 40.7 % (39.0-53.0); HGB 13.6 gm/dL (13.0-17.5); Lymphocytes # (A) 2.1 k/uL (1.0-4.8); Lymphocytes % (A) 13 %; MCH 30.6 pg (25.0-35.0); MCHC 33.3 g/dL (31.0-37.0); Mean Platelet Volume 7.9; Monocytes # (A) 0.9 k/uL (0-1.0); Monocytes % (A) 6 %; Neutrophils % (A) 78 %; Platelet Count 325 k/uL (150-450); RBC 4.43 m/uL (4.30-5.90); RDW 13.6 % (11.5-15.5); WBC 15.5 k/uL (3.8-10.6)
[2020-01-25 15:51] LABS: Non-African American GFR(CKD) 108.7 (60.0-200.0)
--- NOTE | 2020-01-25 21:28 | P.DS ---
Providers Date of admission: 01/23/20 00:00 Expected date of discharge: 01/25/20 Attending physician: Dave Nielsen Consults: 01/23/20 12:47 Consult Physician Routine Consulting Provider: Mary Beth Villeda Consult Reason/Comments: sob Do you want consulting provider notified?: Yes 01/23/20 14:21 Consult Physician Routine Consulting Provider: Eleazar Ortega Consult Reason/Comments: [place] on the right axilla Do you want consulting provider notified?: Yes Primary care physician: John Zazuetamley [facility] Course: Chief Complaint: Fever History of presenting complaint: This is a 39-year-old patient who follows with Dr. Ferreira. Chronic stable medical conditions include bipolar, hypothyroid, lower back pain, spasms in the lower back. Patient habits abscess in the right arm. And has been on Bactrim DS for 3 days. Given to the family doctor. Patient presents with a fever of 104 chills at home activity became confused at home. Slight headache. No change in smell or taste. No diarrhea. Quite tender in the right armpit. Patient does smoke cigarettes. Occasional marijuana. admitted with abscess boils in the right arm. Causing sepsis. Having failed outpatient treatment with Bactrim.patient on IV vancomycin. Patient seen by Dr. ortega from surgery. Did not feel the need for any ID. Seen by pulmonary. No pneumonia. Today-feeling much better. Oral intake good. Patient does of Bactrim is being doubled. Naproxen for anti-inflammatory effect. Patient to follow-up with surgery and ID as outpatient. Discussed weight loss. She'll be seeing Dr. Fernandez for possible bariatric surgery Consultation: Dr. ortega from general surgery Dr. Sanchez and partners from pulmonary Physical examination: VITAL SIGNS: 99.2, 95, 16, 137 bradycardia spine, and 3% room air GENERAL: laying in bed, awake EYES: Pupils equal. Conjunctiva normal. HEENT: External appearance of nose and ears normal, oral cavity grossly normal. NECK: JVD unable to assess; masses not palpable. CHEST wall: Right armpit, boils HEART: First and second heart sounds are normal; no edema. LUNGS: Respiratory rate normal; distant breath sounds. ABDOMEN: Soft, nontender, liver spleen not palpable, no masses palpable. PSYCH: Alert and oriented x3; mood and affect normal. INVESTIGATIONS, reviewed in the clinical context: White count 15.5 hemoglobin 13.6 CRP 81.3 pro-calcitonin 0.11 Coronavirus P/Cr-not detected EKG tracing personally reviewed by me-normal sinus rhythm Chest x-ray film personally reviewed by me-questionable infiltrate, decreased penetration Blood cultures negative Assessment: -This is a patient was presented with a septic picture some delirium likely from his boils and cellulitis in the right armpit for which she has been on Bactrim for 3 days. POA . -Morbid obesity BMI 59 -Bipolar disorder -Hypothyroid -Chronic low back pain -Lower back muscle spasms -Chronic nicotine dependence patient cigarette smoker Disposition: Home Patient Condition at Discharge: Stable Plan - Discharge Summary Discharge Rx Participant: No New Discharge Prescriptions: New Nicotine 7Mg/24Hr Patch [Habitrol] 1 patch TRANSDERM DAILY #14 patch Naproxen 250 mg PO TID #21 tablet Continue Ergocalciferol [Vitamin D2 (DRISDOL)] 50,000 unit PO MO buPROPion XL [Wellbutrin XL] 300 mg PO DAILY Levothyroxine Sodium [Synthroid] 50 mcg PO DAILY Cyclobenzaprine [Flexeril] 10 mg PO TID PRN PRN Reason: Muscle Spasm Changed Sulfamethox-Tmp 800-160Mg [Bactrim DS 800-160 mg] 2 tab PO BID #40 tab Discontinued Ibuprofen [Motrin] 800 mg PO TID PRN PRN Reason: Pain Discharge Medication List Cyclobenzaprine [Flexeril] 10 mg PO TID PRN 01/22/20 [History] Ergocalciferol [Vitamin D2 (DRISDOL)] 50,000 unit PO MO 01/22/20 [History] Levothyroxine Sodium [Synthroid] 50 mcg PO DAILY 01/22/20 [History] buPROPion XL [Wellbutrin XL] 300 mg PO DAILY 01/22/20 [History] Naproxen 250 mg PO TID #21 tablet 01/25/20 [Rx] Nicotine 7Mg/24Hr Patch [Habitrol] 1 patch TRANSDERM DAILY #14 patch 01/25/20 [Rx] Sulfamethox-Tmp 800-160Mg [Bactrim DS 800-160 mg] 2 tab PO BID #40 tab 01/25/20 [Rx] Follow up Appointment(s)/Referral(s): Eleazar Ortega DO [Doctor of Osteopathic Medicine] - As Needed John Ferreira MD [Primary Care Provider] - 02/02/20 10:30 am None,Stated [REFERRING] - 1-2 days Megan Champagne MD [STAFF PHYSICIAN] - 10 Days (Office will be in contact will an appointment time) Patient Instructions/Handouts: Abscess (GEN) Discharge Disposition: HOME SELF-CARE
[2020-01-26] MEDS ORDERED: VANCOMYCIN TROUGH DUE 1 EACH MISC MISCELLANE ONE (05:00)
== END 2020-01-25 13:36 | disposition home or self-care (01) ==
LOC: EC 20:04 → 4SSUR 01-23 → INTOOBSV 01-23 → 4SSUR 01-23 06:01 → UNDODISIN 01-25 13:36
PROVIDERS: ADMIT Hospitalist; ATTEND Hospitalist
DX: A41.9 Sepsis, unspecified organism (principal); L03.111 Cellulitis of right axilla; L02.411 Cutaneous abscess of right axilla; R41.0 Disorientation, unspecified; Z20.828 Contact with and (suspected) exposure to other viral communicable diseases; E66.01 Morbid (severe) obesity due to excess calories; Z68.43 Body mass index [BMI] 50.0-59.9, adult; F90.9 Attention-deficit hyperactivity disorder, unspecified type; F31.9 Bipolar disorder, unspecified; E03.9 Hypothyroidism, unspecified; G89.29 Other chronic pain; M54.5 Low back pain; M62.830 Muscle spasm of back; F17.210 Nicotine dependence, cigarettes, uncomplicated; Z79.890 Hormone replacement therapy; Z79.899 Other long term (current) drug therapy
CPT/HCPCS: 96366 ×3; 96367; 96372 ×3; 96361; 96365; 96375; 99285; 36415; 93005; 85379; 80053; 82728; 82565 ×3; 83605 ×2; 83615; 85025 ×3; 85610; 85730; 86140; 87040; 84145 ×2; 87635; 71045; 71046; 76882; G0378 ×4; S4990 ×3; J3370 ×3; J0456; J1650 ×3; J0696; J0295 ×3

== ENCOUNTER → 2020-02-02 | Outpatient (CLI) | payer OTHER ==
[2020-02-02 14:03] VITALS: BP 129/79; PULSE 71; RESP 18; TEMP 97.8
--- NOTE | 2020-02-02 14:38 | P.HPBAR ---
Bariatric H&P - History & Physicial H&P Date: 02/02/20 History & Physicial: Visit/CC: initial visit Patient initial contact: Initial weight: Initial weight in pounds: Height: 6 ft Initial BMI: Last weight: Current weight: 145.875 kg Current weight in pounds: Current BMI: [place] body weight (based on NIH guidelines): Excess body weight loss: The patient is a 39 year-old M who presents for Bariatric Assessment. He was recently in the hospital for pneumonia. He reports long history of obesity. He had an abscess of the left armpit. He is looking into the gastric bypass. He reports 130 pounds from HS. He reports moving out and gaining much weight from his poor diet. He only eats on meal per day. Highest weight is present. Still has his gallbladder. He wants the gastric bypass. Per insurance he has 1 year. Will need EGD Recommend plan for new insurance Past Medical History Past Medical History: GERD/Reflux, Thyroid Disorder Additional Past Medical History / Comment(s): bipolar, ADHD, obesity History of Any Multi-Drug Resistant Organisms: None Reported Past Surgical History: No Surgical Hx Reported Additional Past Surgical History / Comment(s): wisdom teeth extraction Past Anesthesia/Blood Transfusion Reactions: No Reported Reaction Past Psychological History: ADD/ADHD, Bipolar, Depression Additional Psychological History / Comment(s): major depressive disorder Smoking Status: Current some day smoker Past Alcohol Use History: Occasional Past Drug Use History: Marijuana Surgical - Exam Vital Signs Temp Pulse Resp BP 97.8 F 71 18 129/79 02/02/20 13:53 02/02/20 13:53 02/02/20 13:53 02/02/20 13:53 Bariatric Checklist Checklist: Plan: Checklist: EGD: 1. Hiatal hernia: 2. H. Pylori: HgbA1c: Vitamin D: Smoking: Primary care physician referral: Dr. Hutson Psychiatry clearance: Cardiology clearance: Sleep study: Diet journal: VTE risk score: VTE risk level: Rehab needs at discharge:
[2020-02-02 15:46] LABS: HGB 15.2 gm/dL (13.0-17.5); MCH 30.7 pg (25.0-35.0); MCHC 33.8 g/dL (31.0-37.0); MCV 90.9 fL (80.0-100.0); Mean Platelet Volume 6.6; Platelet Count 447 k/uL (150-450); RBC 4.95 m/uL (4.30-5.90); RDW 13.3 % (11.5-15.5); WBC 9.9 k/uL (3.8-10.6)
[2020-02-03 01:40] LABS: Hemoglobin A1C 5.8 % (4.0-6.0)
[2020-02-03 01:45] LABS: % Iron Saturation 27.27 (15.00-50.00); African American GFR (CKD) 80.8 (60.0-200.0); Albumin 4.2 g/dL (3.80-4.90); Albumin/Globulin Ratio 1.45 (1.60-3.17); BUN/Creat Ratio 9.23 Ratio (12.00-20.00); Calcium 9.5 mg/dL (8.7-10.3); Chol/HDL Ratio 6.41; Globulin 2.9 g/dL (1.6-3.3); LDL Cholesterol,Calculated 109.2 mg/dL (0.0-131.0); Magnesium 2.1 mg/dL (1.5-2.4); Non-African American GFR(CKD) 69.7 (60.0-200.0); Phosphorus 3.2 mg/dL (2.4-5.1); Potassium 4.6 mmol/L (3.5-5.5); Total Bilirubin 0.3 mg/dL (0.3-1.2); Total Protein 7.1 g/dL (6.2-8.2); VLDL Calculation 47.8 mg/dL (5.00-40.00)
[2020-02-03 01:53] LABS: Folate, Serum 5.4 ng/mL
[2020-02-03 02:37] LABS: Ferritin 274.9 ng/mL (22.0-322.0)
[2020-02-03 04:05] LABS: INR 1.14 (0.90-1.11); Partial Thromboplastin Time 28.2 sec (23.5-31.0); Prothrombin Time 12.2 sec (9.9-11.9)
[2020-02-04 14:17] LABS: Zinc, Serum 58 ug/dL (60-130)
[2020-02-07 07:09] LABS: Vitamin A 36 ug/dL (38-106)
[2020-02-07 07:13] LABS: Vit B1(Thiamine) 70 ug/L (38-122)
[2020-02-07 10:51] LABS: Selenium 113 mcg/L (63-160)
== END | disposition home or self-care (01) ==
LOC: BARWHC3 13:33
PROVIDERS: ATTEND Surgery Plastic and Reconstructive Surgery
DX: E66.01 Morbid (severe) obesity due to excess calories (principal); J18.9 Pneumonia, unspecified organism; L02.414 Cutaneous abscess of left upper limb; E89.1 Postprocedural hypoinsulinemia; D50.8 Other iron deficiency anemias; E55.9 Vitamin D deficiency, unspecified; K74.1 Hepatic sclerosis; N19 Unspecified kidney failure; K50.90 Crohn's disease, unspecified, without complications; K90.89 Other intestinal malabsorption; F17.200 Nicotine dependence, unspecified, uncomplicated; Z68.41 Body mass index [BMI] 40.0-44.9, adult
CPT/HCPCS: 84255; 84134; 84425; 80061; 80053; 82607; 82728; 82525; 82746; 83540; 83550; 83735; 84100; 84443; 84590; 84630; 85027; 85610; 85730; 82306; 83970; 83036; G0463; 99211

== ENCOUNTER → 2020-02-18 | Outpatient (CLI) | payer OTHER | END | disposition home or self-care (01) | LOC: LABWHC1 13:45 | PROVIDERS: ATTEND Surgery Plastic and Reconstructive Surgery | DX: N19 Unspecified kidney failure (principal); D50.8 Other iron deficiency anemias; K90.89 Other intestinal malabsorption; E55.9 Vitamin D deficiency, unspecified; K74.1 Hepatic sclerosis; K50.90 Crohn's disease, unspecified, without complications | CPT/HCPCS: 36415; 93005 ==

== ENCOUNTER 2020-05-19 08:50 | Emergency (ER) | payer OTHER ==
[2020-05-19 08:56] VITALS: BP 135/90; PULSE 94; RESP 18; TEMP 98.1
--- NOTE | 2020-05-19 09:03 | ED ---
Skin/Abscess/FB HPI - General Chief complaint: Skin/Abscess/Foreign Body Stated complaint: Arm abcess Time Seen by Provider: 05/19/20 08:57 Source: patient, RN notes reviewed Mode of arrival: ambulatory Limitations: no limitations - History of Present Illness Initial comments: 39-year-old male presents emergency from with chief complaint of abscess to his left axilla. Patient states started 2 days ago. Patient states her small amount of drainage. Patient states that is firm at this time. 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 - Related Data Home Medications Medication Instructions Recorded Confirmed Cyclobenzaprine [Flexeril] 10 mg PO TID PRN 01/22/20 02/02/20 Ergocalciferol [Vitamin D2 50,000 unit PO MO 01/22/20 02/02/20 (DRISDOL)] Levothyroxine Sodium [Synthroid] 50 mcg PO DAILY 01/22/20 02/02/20 buPROPion XL [Wellbutrin XL] 300 mg PO DAILY 01/22/20 02/02/20 Omeprazole [PriLOSEC] 20 mg PO [id number] 02/02/20 02/02/20 Previous Rx's Medication Instructions Recorded Naproxen 250 mg PO TID #21 tablet 01/25/20 Nicotine 7Mg/24Hr Patch [Habitrol] 1 patch TRANSDERM DAILY #14 patch 01/25/20 Sulfamethox-Tmp 800-160Mg [Bactrim 2 tab PO BID #40 tab 01/25/20 DS 800-160 mg] Cephalexin [Keflex] 500 mg PO Q6HR #40 cap 05/19/20 Sulfamethox-Tmp 800-160Mg [Bactrim 1 each PO Q12HR #20 tab 05/19/20 Ds] Allergies Allergy/AdvReac Type Severity Reaction Status Date / Time No Known Allergies Allergy Verified 05/19/20 08:53 Review of Systems ROS Statement: Those systems with pertinent positive or pertinent negative responses have been documented in the HPI. ROS Other: All systems not noted in ROS Statement are negative. Past Medical History Past Medical History: GERD/Reflux, Thyroid Disorder Additional Past Medical History / Comment(s): bipolar, ADHD, obesity History of Any Multi-Drug Resistant Organisms: None Reported Past Surgical History: No Surgical Hx Reported, Cholecystectomy Additional Past Surgical History / Comment(s): wisdom teeth extraction Past Anesthesia/Blood Transfusion Reactions: No Reported Reaction Past Psychological History: ADD/ADHD, Bipolar, Depression Smoking Status: Current every day smoker Past Alcohol Use History: Occasional Past Drug Use History: Marijuana General Exam Limitations: no limitations General appearance: alert, in no apparent distress Head exam: Present: atraumatic, normocephalic, normal inspection Neck exam: Present: normal inspection. Absent: tenderness, meningismus, lymphadenopathy Respiratory exam: Present: normal lung sounds bilaterally. Absent: respiratory distress, wheezes, rales, rhonchi, stridor Cardiovascular Exam: Present: regular rate, normal rhythm, normal heart sounds. Absent: systolic murmur, diastolic murmur, rubs, gallop, clicks Skin exam: Present: other (Left axilla there is an open slightly draining erythematous 1 cm abscess) Course Vital Signs 05/19/20 08:53 Temperature 98.1 F Pulse Rate 94 Respiratory 18 Rate Blood Pressure 135/90 O2 Sat by Pulse 96 Oximetry Medical Decision Making - Medical Decision Making Patient is a small 1 cm abscess that does have an opening there is no marked drainage. Patient will be discharged with antibiotics return parameters were discussed. Disposition Clinical Impression: Abscess of left axilla Disposition: HOME SELF-CARE Condition: Stable Instructions (If sedation given, give patient instructions): Abscess (ED) Additional Instructions: Please return to the Emergency Department if symptoms worsen or any other concerns. Prescriptions: Sulfamethox-Tmp 800-160Mg [Bactrim Ds] 1 each PO Q12HR #20 tab Cephalexin [Keflex] 500 mg PO Q6HR #40 cap Is patient prescribed a controlled substance at d/c from ED?: No Referrals: John Ferreira MD [Primary Care Provider] - 1-2 days Time of Disposition: 09:02
== END 2020-05-19 09:26 | disposition home or self-care (01) ==
LOC: EC 08:50
DX: L02.412 Cutaneous abscess of left axilla (principal); E07.9 Disorder of thyroid, unspecified; K21.9 Gastro-esophageal reflux disease without esophagitis; Z90.49 Acquired absence of other specified parts of digestive tract; F32.9 Major depressive disorder, single episode, unspecified; F17.200 Nicotine dependence, unspecified, uncomplicated; F12.90 Cannabis use, unspecified, uncomplicated
CPT/HCPCS: 99283

== ENCOUNTER 2020-08-07 11:49 | Emergency (ER) | payer OTHER ==
[2020-08-07] MEDS ORDERED: LIDOCAINE 1%-EPI 1:100,000 20 ML VIAL SQ STA (13:50)
--- NOTE | 2020-08-07 14:07 | ED ---
General Adult HPI - General Chief complaint: Skin/Abscess/Foreign Body Stated complaint: cyst on armpit Time Seen by Provider: 08/07/20 13:19 Source: patient Mode of arrival: ambulatory Limitations: no limitations - History of Present Illness Initial comments: Dictation was produced using [employer] dictation software. please excuse any grammatical, word or spelling errors. Chief Complaint: 39-year-old male with past medical history of axillary abscesses signs of abscess to the right axilla History of Present Illness:-year-old male presents with 2 day history of axillary abscesses. Patient has history of axillary abscesses. Patient states he gets these chronically. States that he was admitted for sepsis secondary to this in the past. Patient has any constitutional symptoms or fever. He did have some drainage, from the area. Patient and his squeezed on it with purulent fluid drainage. The ROS documented in this emergency department record has been reviewed and confirmed by me. Those systems with pertinent positive or negative responses have been documented in the HPI. All other systems are other negative and/or noncontributory. PHYSICAL EXAM: General Impression: Alert and oriented x3, not in acute distress HEENT: Normocephalic atraumatic, extra-ocular movements intact, pupils equal and reactive to light bilaterally, mucous membranes moist. Cardiovascular: Heart regular rate and rhythm Chest: Able to complete full sentences, no retractions, no tachypnea Abdomen: abdomen soft, non-tender, non-distended, no organomegaly Musculoskeletal: Pulses present and equal in all extremities, no peripheral edema Motor: no focal deficits noted Neurological: CN II-XII grossly intact, no focal motor or sensory deficits noted Skin: Intact with no visualized rashes, nodule felt in the right axilla with drainage of purulent fluid with mild pressure., No obvious fluctuance Psych: Normal affect and mood ED course: 39-year-old male with right axillary abscess. Vital signs upon arrival are within acceptable limits. Ultrasound was used showing small pocket of possible. In aspiration was performed. Patient reports improved symptoms. Patient given prescription for antibiotics. Return precautions discussed. Patient is agreeable to plan. - Related Data Home Medications Medication Instructions Recorded Confirmed Cyclobenzaprine [Flexeril] 10 mg PO TID PRN 01/22/20 02/02/20 Ergocalciferol [Vitamin D2 50,000 unit PO MO 01/22/20 02/02/20 (DRISDOL)] Levothyroxine Sodium [Synthroid] 50 mcg PO DAILY 01/22/20 02/02/20 buPROPion XL [Wellbutrin XL] 300 mg PO DAILY 01/22/20 02/02/20 Omeprazole [PriLOSEC] 20 mg PO AC-BRKFST 02/02/20 02/02/20 Previous Rx's Medication Instructions Recorded Naproxen 250 mg PO TID #21 tablet 01/25/20 Nicotine 7Mg/24Hr Patch [Habitrol] 1 patch TRANSDERM DAILY #14 patch 01/25/20 Sulfamethox-Tmp 800-160Mg [Bactrim 2 tab PO BID #40 tab 01/25/20 DS 800-160 mg] Cephalexin [Keflex] 500 mg PO Q6HR #40 cap 05/19/20 Sulfamethox-Tmp 800-160Mg [Bactrim 1 each PO Q12HR #20 tab 05/19/20 Ds] Cephalexin [Keflex] 500 mg PO Q6HR 5 Days #20 cap 08/07/20 Sulfamethox-Tmp 800-160Mg [Bactrim 1 tab PO Q12HR 5 Days #10 tab 08/07/20 DS 800-160 mg] Allergies Allergy/AdvReac Type Severity Reaction Status Date / Time No Known Allergies Allergy Verified 08/07/20 12:23 Review of Systems ROS Statement: Those systems with pertinent positive or pertinent negative responses have been documented in the HPI. ROS Other: All systems not noted in ROS Statement are negative. Past Medical History Past Medical History: GERD/Reflux, Thyroid Disorder Additional Past Medical History / Comment(s): bipolar, ADHD, obesity History of Any Multi-Drug Resistant Organisms: None Reported Past Surgical History: No Surgical Hx Reported, Cholecystectomy Additional Past Surgical History / Comment(s): wisdom teeth extraction Past Anesthesia/Blood Transfusion Reactions: No Reported Reaction Past Psychological History: ADD/ADHD, Bipolar, Depression Smoking Status: Current every day smoker Past Alcohol Use History: Occasional Past Drug Use History: Marijuana General Exam Limitations: no limitations Course Vital Signs 08/07/20 12:19 Temperature 98.0 F Pulse Rate 82 Respiratory 16 Rate Blood Pressure 114/77 O2 Sat by Pulse 95 Oximetry Procedures - Incision & Drainage Site: other (axilla) Anesthetic Used: lidocaine 1%, with epi I&D Cleaning Method: Alcohol Wipe Sterile Field Used?: Yes Needle Aspiration Performed?: Yes (few drops of pus) I&D Drainage Obtained: Pus Culture Obtained?: No Patient Tolerated Procedure: well Disposition Clinical Impression: Abscess Disposition: HOME SELF-CARE Condition: Fair Instructions (If sedation given, give patient instructions): Abscess (ED) Prescriptions: Sulfamethox-Tmp 800-160Mg [Bactrim DS 800-160 mg] 1 tab PO Q12HR 5 Days #10 tab Cephalexin [Keflex] 500 mg PO Q6HR 5 Days #20 cap Is patient prescribed a controlled substance at d/c from ED?: No Referrals: John Ferreira MD [Primary Care Provider] - 1-2 days
[2020-08-07 15:10] VITALS: BP 126/79; PULSE 79; RESP 18; TEMP 97.9
== END 2020-08-07 15:09 | disposition home or self-care (01) ==
LOC: EC 11:49
DX: L02.411 Cutaneous abscess of right axilla (principal); E66.9 Obesity, unspecified; K21.9 Gastro-esophageal reflux disease without esophagitis; F31.9 Bipolar disorder, unspecified; F17.200 Nicotine dependence, unspecified, uncomplicated; F12.90 Cannabis use, unspecified, uncomplicated; Z79.1 Long term (current) use of non-steroidal anti-inflammatories (NSAID); Z68.43 Body mass index [BMI] 50.0-59.9, adult
CPT/HCPCS: 10060; 99282

== ENCOUNTER 2020-08-16 02:01 | Emergency (ER) | payer OTHER ==
[2020-08-16 02:07] VITALS: BP 163/127; PULSE 93; RESP 18; TEMP 97.9
[2020-08-16] MEDS ORDERED: ACETAMINOPHEN TAB 325 MG TAB PO STA (02:46)
--- NOTE | 2020-08-16 02:51 | ED ---
Fall HPI - General Chief Complaint: Fall Stated Complaint: Fall, head injury Time Seen by Provider: 08/16/20 02:20 Source: patient Mode of arrival: wheelchair - History of Present Illness Initial Comments: 39 year-old male patient presents to the emergency department for evaluation of right shoulder pain and headache after a fall. Injury occurred around 00:15. States he was climbing over his in bed to answer his phone when he lost his balance, fell forward, and hit his head on the door jamb. States he also hit his right shoulder. He is reporting significant right shoulder pain and headache. Denies loss of consciousness with the injury. Denies blurred vision, double vision, nausea, or vomiting. Denies any neck or back pain. Does report some tingling to the right arm. Denies taking anything for pain. Denies use of blood thinning medications. Patient denies any chest pain, shortness of breath, dizziness, weakness, abdominal pain, or difficulties with bowel movements or urination. - Related Data Home Medications Medication Instructions Recorded Confirmed Cyclobenzaprine [Flexeril] 10 mg PO TID PRN 01/22/20 02/02/20 Ergocalciferol [Vitamin D2 50,000 unit PO MO 01/22/20 02/02/20 (DRISDOL)] Levothyroxine Sodium [Synthroid] 50 mcg PO DAILY 01/22/20 02/02/20 buPROPion XL [Wellbutrin XL] 300 mg PO DAILY 01/22/20 02/02/20 Omeprazole [PriLOSEC] 20 mg PO AC-BRKFST 02/02/20 02/02/20 Previous Rx's Medication Instructions Recorded Naproxen 250 mg PO TID #21 tablet 01/25/20 Nicotine 7Mg/24Hr Patch [Habitrol] 1 patch TRANSDERM DAILY #14 patch 01/25/20 Sulfamethox-Tmp 800-160Mg [Bactrim 2 tab PO BID #40 tab 01/25/20 DS 800-160 mg] Cephalexin [Keflex] 500 mg PO Q6HR #40 cap 05/19/20 Sulfamethox-Tmp 800-160Mg [Bactrim 1 each PO Q12HR #20 tab 05/19/20 Ds] Cephalexin [Keflex] 500 mg PO Q6HR 5 Days #20 cap 08/07/20 Sulfamethox-Tmp 800-160Mg [Bactrim 1 tab PO Q12HR 5 Days #10 tab 08/07/20 DS 800-160 mg] Ibuprofen [Motrin] 600 mg PO Q8HR PRN #30 tab 08/16/20 Allergies Allergy/AdvReac Type Severity Reaction Status Date / Time No Known Allergies Allergy Verified 08/16/20 02:03 Review of Systems ROS Statement: Those systems with pertinent positive or pertinent negative responses have been documented in the HPI. ROS Other: All systems not noted in ROS Statement are negative. Past Medical History Past Medical History: GERD/Reflux, Thyroid Disorder Additional Past Medical History / Comment(s): bipolar, ADHD, obesity History of Any Multi-Drug Resistant Organisms: None Reported Past Surgical History: No Surgical Hx Reported Additional Past Surgical History / Comment(s): wisdom teeth extraction Past Anesthesia/Blood Transfusion Reactions: No Reported Reaction Past Psychological History: ADD/ADHD, Bipolar, Depression Smoking Status: Current some day smoker Past Alcohol Use History: Occasional Past Drug Use History: Marijuana General Exam Limitations: no limitations General appearance: alert, in no apparent distress, other (This is a well- developed, well-nourished adult male patient in no acute distress. Vital signs upon presentation are temperature 97.9F, pulse 93, respirations 18, blood pressure 163/127, pulse ox 97% on room air.) Head exam: Present: other (There is linear area of erythema noted over the forehead. No bleeding or open wounds. No ecchymosis or swelling noted.) Eye exam: Present: normal appearance, PERRL, EOMI. Absent: scleral icterus, conjunctival injection, nystagmus, periorbital swelling ENT exam: Present: normal exam, normal oropharynx, mucous membranes moist Neck exam: Present: normal inspection, full ROM, other (Nontender, no step-off, no deformity to firm midline palpation of the posterior cervical spine. Full range of motion without pain or limitation.). Absent: tenderness, meningismus, lymphadenopathy Respiratory exam: Present: normal lung sounds bilaterally. Absent: respiratory distress, wheezes, rales, rhonchi, stridor Cardiovascular Exam: Present: regular rate, normal rhythm, normal heart sounds. Absent: systolic murmur, diastolic murmur, rubs, gallop, clicks Extremities exam: Present: normal inspection, normal capillary refill, other (Skin to the right arm is pink, warm, dry. Cap refill less than 3 seconds. Radial pulses 2+.). Absent: full ROM (Decreased range of motion to the shoulder just increased pain with movement.), tenderness, pedal edema, joint swelling, calf tenderness Back exam: Present: normal inspection, other (Nontender, no step-off, no deformity to firm midline palpation of the thoracic and lumbar vertebrae. Full range of motion without pain or limitation.). Absent: vertebral tenderness Neurological exam: Present: alert, oriented X3, CN II-XII intact Expanded Speech: Present: fluid speech Cranial nerves: EOM's Intact: Normal, Nystagmus: Normal Motor strength exam: RUE: 5, LUE: 5, RLE: 5, LLE: 5 Eye Response: (4) open spontaneously Motor Response: (6) obeys commands Verbal Response: (5) oriented [place] Total: 15 Psychiatric exam: Present: normal affect, normal mood Skin exam: Present: warm, dry, intact, normal color. Absent: rash Course Vital Signs 08/16/20 02:03 Temperature 97.9 F Pulse Rate 93 Respiratory 18 Rate Blood Pressure 163/127 O2 Sat by Pulse 97 Oximetry Medical Decision Making - Medical Decision Making 39-year-old male patient presented to the emergency department today for evaluation after experiencing a fall. Came in reporting headache and shoulder pain. Physical examination was unremarkable. He is neurologically intact with no focal deficits. Neurovascular status intact to the shoulder and arm. X-ray of the shoulder was negative. Computed tomography scan of the brain was negative. Did discuss findings and results with him. Be discharged follow up with the primary care physician for recheck in 1-2 days. He is instructed to follow-up with orthopedics if his symptoms are not improved over the next 7-10 days. Return parameters discussed in detail. He verbalizes understanding and agrees with this plan. My attending is Dr. Melo. - Radiology Data Radiology results: report reviewed, image reviewed 3 views of the right shoulder obtained. Report is reviewed in its entirety. Impression by Dr. Antonio shows negative right shoulder exam. CT brain without contrast was obtained. Report was reviewed in its entirety. Impression by Dr. Antonio shows negative unenhanced head computed tomography scan. Disposition Clinical Impression: Forehead contusion, Right shoulder strain Disposition: HOME SELF-CARE Condition: Good Instructions (If sedation given, give patient instructions): Head Injury (ED), Shoulder Sprain (ED) Additional Instructions: Rest and ice the right shoulder. Perform gentle range of motion exercises several times per day. Take medication as needed for pain. Follow-up with your primary care physician for recheck if you're symptoms aren't improved over the next week. Return to the emergency department immediately for any new, worsening, or concerning symptoms. Prescriptions: Ibuprofen [Motrin] 600 mg PO Q8HR PRN #30 tab PRN Reason: Pain Is patient prescribed a controlled substance at d/c from ED?: No Referrals: John Ferreira MD [Primary Care Provider] - 1-2 days Time of Disposition: 03:13
--- NOTE | 2020-08-16 02:56 | CT ---
EXAMINATION TYPE: CT brain wo con DATE OF EXAM: 08/16/2020 COMPARISON: None HISTORY: Fall, Pain CT DLP: 1102.40 mGycm Automated exposure control for dose reduction was used. Ventricles and sulci appear normal. There is no mass effect or midline shift. There is no sign of int racranial hemorrhage. The calvarium is intact. There is no evidence of cerebral edema. There is jose l aeration of the mastoid sinuses. IMPRESSION: Negative unenhanced head CT scan.
--- NOTE | 2020-08-16 03:09 | XR ---
EXAMINATION TYPE: XR shoulder complete RT DATE OF EXAM: 08/16/2020 COMPARISON: NONE HISTORY: Fall. Pain. TECHNIQUE: 3 views FINDINGS: I see no fracture nor dislocation. Joint spaces are normal. There are no pathologic calcifi cations. IMPRESSION: Negative right shoulder exam.
[2020-08-16] MEDS ORDERED: KETOROLAC 15 MG/ML 1 ML VIAL IM STA (03:14)
[2020-08-16] MEDS ORDERED: ACET/COD 300 MG/30 MG STARTER PACK 6 TAB BTL PO STA (03:14)
== END 2020-08-16 03:38 | disposition home or self-care (01) ==
LOC: EC 02:01
DX: S46.911A Strain of unspecified muscle, fascia and tendon at shoulder and upper arm level, right arm, initial encounter (principal); S00.83XA Contusion of other part of head, initial encounter; K21.9 Gastro-esophageal reflux disease without esophagitis; F17.200 Nicotine dependence, unspecified, uncomplicated; F32.9 Major depressive disorder, single episode, unspecified; F12.90 Cannabis use, unspecified, uncomplicated; E07.9 Disorder of thyroid, unspecified; W01.198A Fall on same level from slipping, tripping and stumbling with subsequent striking against other object, initial encounter
CPT/HCPCS: 73030; 70450; 99284; 96372; J1885

== ENCOUNTER 2020-10-13 11:44 | Emergency (ER) | payer OTHER ==
[2020-10-13 12:02] VITALS: TEMP 98.3
[2020-10-13] MEDS ORDERED: SODIUM CHLORIDE 0.9% 500 ML 500 ML IV STA (12:27)
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
[2020-10-13 13:29] LABS: Basophils % (A) 0 %; Eosinophils # (A) 0.2 k/uL (0-0.7); Eosinophils % (A) 2 %; HCT 45.1 % (39.0-53.0); HGB 15.2 gm/dL (13.0-17.5); Lymphocytes # (A) 2.7 k/uL (1.0-4.8); Lymphocytes % (A) 28 %; MCH 30.8 pg (25.0-35.0); MCHC 33.6 g/dL (31.0-37.0); MCV 91.5 fL (80.0-100.0); Mean Platelet Volume 7.5; Monocytes # (A) 0.6 k/uL (0-1.0); Monocytes % (A) 6 %; Neutrophils # (A) 5.8 k/uL (1.3-7.7); Neutrophils % (A) 62 %; Platelet Count 342 k/uL (150-450); RBC 4.93 m/uL (4.30-5.90); RDW 13.4 % (11.5-15.5); WBC 9.4 k/uL (3.8-10.6)
[2020-10-13 13:49] LABS: Appearance,Urine Clear (Clear); Bilirubin,Urine Negative (Negative); Blood,Urine Negative (Negative); Color,Urine Yellow; Glucose,Urine (UA) Negative (Negative); Ketones,Urine Negative (Negative); Leukocyte Esterase,Urine Negative (Negative); Nitrite,Urine Negative (Negative); Protein,Urine Negative (Negative); Specific Gravity,Urine 1.025 (1.001-1.035); Urobilinogen,Urine <2.0 mg/dL (<2.0)
[2020-10-13 13:59] LABS: ALT 79 U/L (4-49); AST 41 U/L (17-59); African American GFR (CKD) >90 (>60 ml/min/1.73 sqM); Alcohol <10 mg/dL; Alkaline Phosphatase 107 U/L (38-126); Anion Gap 9 mmol/L; Blood Urea Nitrogen 12 mg/dL (9-20); Calcium 9.5 mg/dL (8.4-10.2); Carbon Dioxide 24 mmol/L (22-30); Chloride 104 mmol/L (98-107); Glucose 114 mg/dL (74-99); Non-African American GFR(CKD) >90 (>60 ml/min/1.73 sqM); Potassium 4.3 mmol/L (3.5-5.1); Sodium 137 mmol/L (137-145); Total Bilirubin 0.4 mg/dL (0.2-1.3); Total Protein 7.1 g/dL (6.3-8.2)
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
[2020-10-13 14:13] LABS: Amphetamine Screen,Urine Not Detected (NotDetected); Barbiturate Screen,Urine Not Detected (NotDetected); Benzodiazepines Screen,Urine Not Detected (NotDetected); Cocaine Screen,Urine Not Detected (NotDetected); Methadone Screen, Urine Not Detected (NotDetected); Opiate Screen,Urine Not Detected (NotDetected); Oxycodone Screen, Urine Not Detected (NotDetected); Phencyclidine Screen,Urine Not Detected (NotDetected); Tricyclic Antidepressant,Urine Not Detected (NotDetected); Urn Cannabinoid Scrn Not Detected (NotDetected)
[2020-10-13 15:32] VITALS: BP 139/105; PULSE 72; RESP 18
== END 2020-10-13 15:10 | disposition home or self-care (01) ==
LOC: EC 11:44
DX: R07.81 Pleurodynia (principal); E66.01 Morbid (severe) obesity due to excess calories; K21.9 Gastro-esophageal reflux disease without esophagitis; F31.9 Bipolar disorder, unspecified; F17.200 Nicotine dependence, unspecified, uncomplicated; F12.90 Cannabis use, unspecified, uncomplicated; Z79.890 Hormone replacement therapy; Z79.1 Long term (current) use of non-steroidal anti-inflammatories (NSAID); Z79.899 Other long term (current) drug therapy; Z68.44 Body mass index [BMI] 60.0-69.9, adult; V48.5XXA Car driver injured in noncollision transport accident in traffic accident, initial encounter; Y92.410 Unspecified street and highway as the place of occurrence of the external cause
CPT/HCPCS: 36415; 70450; 72125; 72170; 80053; 80306; 80320; 81003; 84484; 85025; 93005; 96360; 96361; 99285

== ENCOUNTER → 2020-10-26 | Outpatient (CLI) | payer OTHER ==
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
== END ==
LOC: SLEEP 15:09
PROVIDERS: ATTEND Internal Medicine
DX: G47.33 Obstructive sleep apnea (adult) (pediatric) (principal); E66.01 Morbid (severe) obesity due to excess calories; E03.9 Hypothyroidism, unspecified; F39 Unspecified mood [affective] disorder; J45.990 Exercise induced bronchospasm; J30.2 Other seasonal allergic rhinitis; Z68.44 Body mass index [BMI] 60.0-69.9, adult; M54.9 Dorsalgia, unspecified; Z79.890 Hormone replacement therapy; Z79.899 Other long term (current) drug therapy
CPT/HCPCS: 99211

== ENCOUNTER → 2020-11-22 | Outpatient (CLI) | payer OTHER ==
--- NOTE | 2020-11-22 14:37 | US ---
EXAMINATION TYPE: US abdomen limited DATE OF EXAM: 11/22/2020 COMPARISON: NONE CLINICAL HISTORY: 40-year-old male R74.8 elevated liver enzymes. TECHNIQUE: Multiple sonographic images of the right upper quadrant are obtained. FINDINGS: EXAM MEASUREMENTS: Liver Length: 21.7 cm Gallbladder Wall: 0.3 cm Right Kidney: 12.5 x 4.5 x 4.3 cm Wage Adjuster notes:technical limitations due to patient's body habitus (morbidly obese) and large am ount of overlying bowel content Pancreas: Obscured by bowel gas Liver: enlarged, attenuating, unable to penetrate. This secondarily limits assessment for focal lesi ons. Gallbladder: possible stone 1.1 cm dependent gallstone. No abnormal gallbladder distention, wall thi ckening, or surrounding fluid. Evidence for sonographic Beck's sign: no CBD: Obscured by overlying bowel gas Right Kidney: no evidence of hydronephrosis IMPRESSION: 1. Hepatomegaly (21.7 cm) with severe hepatic steatosis. 2. Possible 1.1 cm dependent gallstone. No ancillary imaging findings of acute cholecystitis. 3. The bile duct and pancreas are both obscured and could not be assessed.
[2020-11-22 20:33] LABS: Hemoglobin A1C 6.5 % (4.0-6.0)
== END | disposition home or self-care (01) ==
LOC: RADUSWWP 09:06
PROVIDERS: ATTEND Pediatrics
DX: K76.0 Fatty (change of) liver, not elsewhere classified (principal); R16.0 Hepatomegaly, not elsewhere classified
CPT/HCPCS: 76705; 83036

== ENCOUNTER 2021-03-15 03:19 | Emergency (ER) | payer OTHER ==
[2021-03-15 03:24] VITALS: TEMP 97.9
--- NOTE | 2021-03-15 03:41 | ED ---
Lower Extremity Injury HPI - General Chief Complaint: Extremity Injury, Lower Stated Complaint: Toe Injury Time Seen by Provider: 03/15/21 03:40 Source: patient, RN notes reviewed, old records reviewed Mode of arrival: ambulatory Limitations: no limitations - History of Present Illness Initial Comments: This is a 40-year-old male to the emergency department today. Patient Dese for evaluation of severe right little toe pain. Severe toe pain. Patient had a fall yesterday and a fall today which is causing significant pain to his right pinky toe. Patient is no other injury from this fall. She has no real significant medical history is not taking any medications but does have severe pain with ambulation MD Complaint: foot injury -: hour(s) Injury: Toes: Right (5th toe) Type of Injury: blunt Place: home Severity: moderate Severity scale (1-10): 4 Improves With: nothing Worsens With: nothing Context: fall, direct blow Associated Symptoms: able to partially bear weight Treatments Prior to Arrival: cold therapy - Related Data Home Medications Medication Instructions Recorded Confirmed Cyclobenzaprine [Flexeril] 10 mg PO TID PRN 01/22/20 02/02/20 Ergocalciferol [Vitamin D2 50,000 unit PO MO 01/22/20 02/02/20 (DRISDOL)] Levothyroxine Sodium [Synthroid] 50 mcg PO DAILY 01/22/20 02/02/20 buPROPion XL [Wellbutrin XL] 300 mg PO DAILY 01/22/20 02/02/20 Omeprazole [PriLOSEC] 20 mg PO AC-BRKFST 02/02/20 02/02/20 Previous Rx's Medication Instructions Recorded Naproxen 250 mg PO TID #21 tablet 01/25/20 Nicotine 7Mg/24Hr Patch [Habitrol] 1 patch TRANSDERM DAILY #14 patch 01/25/20 Sulfamethox-Tmp 800-160Mg [Bactrim 2 tab PO BID #40 tab 01/25/20 DS 800-160 mg] Cephalexin [Keflex] 500 mg PO Q6HR #40 cap 05/19/20 Sulfamethox-Tmp 800-160Mg [Bactrim 1 each PO Q12HR #20 tab 05/19/20 Ds] Cephalexin [Keflex] 500 mg PO Q6HR 5 Days #20 cap 08/07/20 Sulfamethox-Tmp 800-160Mg [Bactrim 1 tab PO Q12HR 5 Days #10 tab 08/07/20 DS 800-160 mg] Ibuprofen [Motrin] 600 mg PO Q8HR PRN #30 tab 08/16/20 Ibuprofen [Motrin] 600 mg PO Q8HR PRN #30 tab 10/13/20 Allergies Allergy/AdvReac Type Severity Reaction Status Date / Time No Known Allergies Allergy Verified 03/15/21 03:24 Review of Systems ROS Statement: Those systems with pertinent positive or pertinent negative responses have been documented in the HPI. ROS Other: All systems not noted in ROS Statement are negative. Past Medical History Past Medical History: GERD/Reflux, Thyroid Disorder Additional Past Medical History / Comment(s): bipolar, ADHD, obesity History of Any Multi-Drug Resistant Organisms: None Reported Past Surgical History: No Surgical Hx Reported Additional Past Surgical History / Comment(s): wisdom teeth extraction Past Anesthesia/Blood Transfusion Reactions: No Reported Reaction Past Psychological History: ADD/ADHD, Bipolar, Depression Smoking Status: Current some day smoker Past Alcohol Use History: Occasional Past Drug Use History: Marijuana General Exam Limitations: no limitations General appearance: alert, in no apparent distress Head exam: Present: atraumatic, normocephalic, normal inspection Eye exam: Present: normal appearance, PERRL, EOMI. Absent: scleral icterus, conjunctival injection, periorbital swelling ENT exam: Present: normal exam, mucous membranes moist Neck exam: Present: normal inspection. Absent: tenderness, meningismus, lymphadenopathy Respiratory exam: Present: normal lung sounds bilaterally. Absent: respiratory distress, wheezes, rales, rhonchi, stridor Cardiovascular Exam: Present: regular rate, normal rhythm, normal heart sounds. Absent: systolic murmur, diastolic murmur, rubs, gallop, clicks GI/Abdominal exam: Present: soft, normal bowel sounds. Absent: distended, tenderness, guarding, rebound, rigid Extremities exam: Present: normal inspection, full ROM, normal capillary refill, other (Miscarriage right fifth toe pain). Absent: tenderness, pedal edema, joint swelling, calf tenderness Back exam: Present: normal inspection Neurological exam: Present: alert, oriented X3, CN II-XII intact Psychiatric exam: Present: normal affect, normal mood Skin exam: Present: warm, dry, intact, normal color. Absent: rash Course Vital Signs 03/15/21 03:20 Temperature 97.9 F Pulse Rate 98 Respiratory 20 Rate Blood Pressure 143/76 O2 Sat by Pulse 95 Oximetry - Reevaluation(s) Reevaluation #1: 03/15/21 05:26 Medical record is reviewed Reevaluation #2: 03/15/21 05:26 Patient now requiring anything for pain Reevaluation #3: 03/15/21 05:26 Patient still was yesenia taped encouraged to get walking shoe Medical Decision Making - Medical Decision Making 40 male has right this metatarsal pain. Patient's not requiring pain medication currently is able to ambulate, patient has no other significant complaints and can be discharged home will give follow-up with orthopedics - Radiology Data Radiology results: report reviewed (X-ray right foot is positive for fifth toe fracture), image reviewed Disposition Clinical Impression: Fracture of fifth toe, right, closed, Fall Disposition: HOME SELF-CARE Condition: Good Instructions (If sedation given, give patient instructions): Toe Fracture (ED) Is patient prescribed a controlled substance at d/c from ED?: No Referrals: John Ferreira MD [Primary Care Provider] - 1-2 days Eddy Jean DO [Doctor of Osteopathic Medicine] - 1-2 days
--- NOTE | 2021-03-15 03:57 | XR ---
EXAMINATION TYPE: XR foot complete RT DATE OF EXAM: 03/15/2021 COMPARISON: NONE HISTORY: Little toe pain TECHNIQUE: 3 view FINDINGS: There is nondisplaced transverse fracture through the distal shaft of the proximal phalanx of the little toe right foot. There is no dislocation. There is plantar and Achilles calcaneal spurri ng. Metatarsals are intact. IMPRESSION: Nondisplaced little toe fracture as above.
[2021-03-15 05:32] VITALS: RESP 18
[2021-03-15 05:34] VITALS: BP 132/74; PULSE 89
== END 2021-03-15 05:34 | disposition home or self-care (01) ==
LOC: EC 03:19
DX: S92.351A Displaced fracture of fifth metatarsal bone, right foot, initial encounter for closed fracture (principal); K21.9 Gastro-esophageal reflux disease without esophagitis; F31.9 Bipolar disorder, unspecified; F90.9 Attention-deficit hyperactivity disorder, unspecified type; F17.200 Nicotine dependence, unspecified, uncomplicated; F12.90 Cannabis use, unspecified, uncomplicated; Z72.89 Other problems related to lifestyle; Z79.899 Other long term (current) drug therapy; W19.XXXA Unspecified fall, initial encounter
CPT/HCPCS: 99283

== ENCOUNTER 2021-12-29 13:33 | Emergency (ER) | payer OTHER ==
[2021-12-29 13:40] VITALS: BP 161/80; PULSE 84; RESP 20; TEMP 98.9
--- NOTE | 2021-12-29 14:01 | ED ---
General Adult HPI - General Source: patient Mode of arrival: ambulatory Limitations: no limitations <Ashwin Parks - Last Filed: 12/29/21 15:04> <Luis Ramos - Last Filed: 12/29/21 15:20> - General Chief complaint: Upper Respiratory Infection Stated complaint: URI Time Seen by Provider: 12/29/21 13:42 - History of Present Illness Initial comments: Dictation was produced using [employer] dictation software. please excuse any grammatical, word or spelling errors. Chief Complaint: 41-year-old male presents emergency department for URI symptoms 8 days History of Present Illness: To 41-year-old male. 9 days ago he started having symptoms of headache, cough, runny nose and chills. Patient states that his symptoms have not completely gone away. States that however he does feel slightly better. Patient states that his cough is nonproductive of sputum. Patient is vaccinated for COVID-19. 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 The ROS documented in this emergency department record has been reviewed and confirmed by me. Those systems with pertinent positive or negative responses have been documented in the HPI. All other systems are other negative and/or noncontributory. PHYSICAL EXAM: General Impression: Alert and oriented x3, not in acute distress HEENT: Normocephalic atraumatic, extra-ocular movements intact, pupils equal and reactive to light bilaterally, mucous membranes moist. Cardiovascular: Heart regular rate and rhythm Chest: Able to complete full sentences, no retractions, no tachypnea, clear to auscultation bilaterally Musculoskeletal: no peripheral edema Motor: no focal deficits noted Neurological: CN II-XII grossly intact, no focal motor or sensory deficits noted Skin: Intact with no visualized rashes Psych: Normal affect and mood ED course: 41-year-old male presents emergency Department with URI symptoms 8 days. Vital signs upon arrival are within acceptable limits. Patient's well- appearing at bedside not showing any signs of respiratory distress. Patient denies any significant comorbidities. Chest x-ray is unremarkable. Pending viral testing. Signed out to Dr. Ramos (Ashwin Parks) - Related Data Home Medications Medication Instructions Recorded Confirmed Cyclobenzaprine [Flexeril] 10 mg PO TID PRN 01/22/20 02/02/20 Ergocalciferol [Vitamin D2 50,000 unit PO MO 01/22/20 02/02/20 (DRISDOL)] Levothyroxine Sodium [Synthroid] 50 mcg PO DAILY 01/22/20 02/02/20 buPROPion XL [Wellbutrin XL] 300 mg PO DAILY 01/22/20 02/02/20 Omeprazole [PriLOSEC] 20 mg PO AC-BRKFST 02/02/20 02/02/20 Previous Rx's Medication Instructions Recorded Naproxen 250 mg PO TID #21 tablet 01/25/20 Nicotine 7Mg/24Hr Patch [Habitrol] 1 patch TRANSDERM DAILY #14 patch 01/25/20 Sulfamethox-Tmp 800-160Mg [Bactrim 2 tab PO BID #40 tab 01/25/20 DS 800-160 mg] Cephalexin [Keflex] 500 mg PO Q6HR #40 cap 05/19/20 Sulfamethox-Tmp 800-160Mg [Bactrim 1 each PO Q12HR #20 tab 05/19/20 Ds] Cephalexin [Keflex] 500 mg PO Q6HR 5 Days #20 cap 08/07/20 Sulfamethox-Tmp 800-160Mg [Bactrim 1 tab PO Q12HR 5 Days #10 tab 08/07/20 DS 800-160 mg] Ibuprofen [Motrin] 600 mg PO Q8HR PRN #30 tab 08/16/20 Ibuprofen [Motrin] 600 mg PO Q8HR PRN #30 tab 10/13/20 Allergies Allergy/AdvReac Type Severity Reaction Status Date / Time No Known Allergies Allergy Verified 12/29/21 13:40 Review of Systems ROS Other: All systems not noted in ROS Statement are negative. <Ashwin Parks - Last Filed: 12/29/21 15:04> ROS Other: All systems not noted in ROS Statement are negative. <Luis Ramos - Last Filed: 12/29/21 15:20> ROS Statement: Those systems with pertinent positive or pertinent negative responses have been documented in the HPI. Past Medical History Past Medical History: GERD/Reflux, Thyroid Disorder Additional Past Medical History / Comment(s): bipolar, ADHD, obesity History of Any Multi-Drug Resistant Organisms: None Reported Past Surgical History: No Surgical Hx Reported Additional Past Surgical History / Comment(s): wisdom teeth extraction Past Anesthesia/Blood Transfusion Reactions: No Reported Reaction Past Psychological History: ADD/ADHD, Bipolar, Depression Smoking Status: Current some day smoker Past Alcohol Use History: Occasional Past Drug Use History: Marijuana <Ashwin Parks - Last Filed: 12/29/21 15:04> General Exam Limitations: no limitations <Ashwin Parks - Last Filed: 12/29/21 15:04> Course Vital Signs 12/29/21 13:38 Temperature 98.9 F Pulse Rate 84 Respiratory 20 Rate Blood Pressure 161/80 O2 Sat by Pulse 97 Oximetry Medical Decision Making <Luis Ramos - Last Filed: 12/29/21 15:20> - Medical Decision Making 41-year-old male who presented with symptoms consistent with a viral syndrome. Coronavirus, RSV, influenza was all negative. Vital signs are stable. Chest x- ray is clear. Patient should follow-up with the primary care physician. Stable for discharge. (Luis Ramos) - Lab Data Lab Results 12/29/21 Range/Units 13:51 Influenza Type A (PCR) Not Detected (Not Detectd) Influenza Type B (PCR) Not Detected (Not Detectd) RSV (PCR) Not Detected (Not Detectd) SARS-CoV-2 (PCR) Not Detected (Not Detectd) Disposition <Ashwin Parks - Last Filed: 12/29/21 15:04> Is patient prescribed a controlled substance at d/c from ED?: No Time of Disposition: 15:20 <Luis Ramos - Last Filed: 12/29/21 15:20> Clinical Impression: Acute upper respiratory infection Disposition: HOME SELF-CARE Condition: Fair Instructions (If sedation given, give patient instructions): Upper Respiratory Infection (ED) Referrals: John Ferreira MD [Primary Care Provider] - 1-2 days
--- NOTE | 2021-12-29 14:30 | XR ---
EXAMINATION TYPE: 2 view chest DATE OF EXAM: 12/29/2021 COMPARISON: None INDICATION: Cough, asthma TECHNIQUE: Frontal and lateral views of the chest are obtained. FINDINGS: The heart size is normal. The pulmonary vasculature is normal. The lungs are clear. IMPRESSION: 1. No acute pulmonary process.
== END 2021-12-29 15:33 | disposition home or self-care (01) ==
LOC: EC 13:33
DX: J06.9 Acute upper respiratory infection, unspecified (principal); K21.9 Gastro-esophageal reflux disease without esophagitis; E07.9 Disorder of thyroid, unspecified; F12.90 Cannabis use, unspecified, uncomplicated; F17.200 Nicotine dependence, unspecified, uncomplicated; Z20.822 Contact with and (suspected) exposure to COVID-19; Z79.890 Hormone replacement therapy; Z79.83 Long term (current) use of bisphosphonates
CPT/HCPCS: 71046; 87636; 99283

== ENCOUNTER 2021-12-30 15:18 | Emergency (ER) | payer OTHER ==
[2021-12-30] MEDS ORDERED: DIPH,PERTUS(ACELL)TETVAC-LF 0.5 ML VIAL IM ONE (15:19)
[2021-12-30] MEDS ORDERED: MORPHINE SULFATE 4 MG/ML SYRINGE IM STA (15:19)
[2021-12-30 15:23] VITALS: TEMP 98
[2021-12-30] MEDS ORDERED: PROPOFOL 10 MG/ML 20 ML VIAL IV STA (15:40)
[2021-12-30] MEDS ORDERED: SODIUM CHLORIDE 0.9% 500 ML 500 ML IV ONE (15:41)
[2021-12-30] MEDS ORDERED: MORPHINE SULFATE 4 MG/ML SYRINGE IVP STA (15:41)
[2021-12-30] MEDS ORDERED: ONDANSETRON 4 MG/2 ML VIAL IVP STA (15:42)
--- NOTE | 2021-12-30 15:48 | XR ---
EXAMINATION TYPE: XR ankle complete LT DATE OF EXAM: 12/30/2021 COMPARISON: NONE HISTORY: Pain TECHNIQUE: 3 views FINDINGS: There is intact ankle mortise. There is some spurring of the anterior malleolus. There is p lantar and Achilles calcaneal spurring. There is mild soft tissue swelling around the ankle. IMPRESSION: Soft tissue swelling. No fracture seen. Calcaneal spurring.
--- NOTE | 2021-12-30 15:49 | XR ---
EXAMINATION TYPE: XR wrist complete LT DATE OF EXAM: 12/30/2021 COMPARISON: NONE HISTORY: Fall. Pain TECHNIQUE: 3 views FINDINGS: There is impacted comminuted fracture of the distal radial metaphysis. Fracture line also e xtends to the radiocarpal joint. There is nondisplaced fracture of the ulnar styloid process. There i s some mild anterior displacement of the fragments on the lateral view. No dislocation. The carpal perez mook are intact. Metacarpals are intact. IMPRESSION: Acute comminuted displaced intra-articular fracture of the distal radius. Ulnar styloid p rocess fracture.
[2021-12-30 16:23] VITALS: RESP 18
--- NOTE | 2021-12-30 16:26 | ED ---
Upper Extremity HPI - General Source: patient, RN notes reviewed Mode of arrival: EMS Limitations: no limitations <Aric Kendrick - Last Filed: 12/30/21 16:31> <Nicanor Brownlee - Last Filed: 12/30/21 16:42> - General Chief Complaint: Extremity Injury, Upper Stated Complaint: lt ankle injury & upper arm Time Seen by Provider: 12/30/21 15:19 - History of Present Illness Initial Comments: This a 41-year-old male presents emergency from via EMS after a fall. Patient tripped over the curb scrape in his right knee, complaint left ankle pain and left wrist pain. Patient had no head injury no loss conscious. Patient was placed in a splint by EMS. (Aric Kendrick) - Related Data Home Medications Medication Instructions Recorded Confirmed Cyclobenzaprine [Flexeril] 10 mg PO TID PRN 01/22/20 02/02/20 Ergocalciferol [Vitamin D2 50,000 unit PO MO 01/22/20 02/02/20 (DRISDOL)] Levothyroxine Sodium [Synthroid] 50 mcg PO DAILY 01/22/20 02/02/20 buPROPion XL [Wellbutrin XL] 300 mg PO DAILY 01/22/20 02/02/20 Omeprazole [PriLOSEC] 20 mg PO AC-BRKFST 02/02/20 02/02/20 Previous Rx's Medication Instructions Recorded Naproxen 250 mg PO TID #21 tablet 01/25/20 Nicotine 7Mg/24Hr Patch [Habitrol] 1 patch TRANSDERM DAILY #14 patch 01/25/20 Sulfamethox-Tmp 800-160Mg [Bactrim 2 tab PO BID #40 tab 01/25/20 DS 800-160 mg] Cephalexin [Keflex] 500 mg PO Q6HR #40 cap 05/19/20 Sulfamethox-Tmp 800-160Mg [Bactrim 1 each PO Q12HR #20 tab 05/19/20 Ds] Cephalexin [Keflex] 500 mg PO Q6HR 5 Days #20 cap 08/07/20 Sulfamethox-Tmp 800-160Mg [Bactrim 1 tab PO Q12HR 5 Days #10 tab 08/07/20 DS 800-160 mg] Ibuprofen [Motrin] 600 mg PO Q8HR PRN #30 tab 08/16/20 Ibuprofen [Motrin] 600 mg PO Q8HR PRN #30 tab 10/13/20 Allergies Allergy/AdvReac Type Severity Reaction Status Date / Time No Known Allergies Allergy Verified 12/30/21 15:23 Review of Systems ROS Other: All systems not noted in ROS Statement are negative. <Aric Kendrick - Last Filed: 12/30/21 16:31> ROS Other: All systems not noted in ROS Statement are negative. <Nicanor Brownlee - Last Filed: 12/30/21 16:42> ROS Statement: Those systems with pertinent positive or pertinent negative responses have been documented in the HPI. Past Medical History Past Medical History: GERD/Reflux, Thyroid Disorder Additional Past Medical History / Comment(s): bipolar, ADHD, obesity History of Any Multi-Drug Resistant Organisms: None Reported Past Surgical History: No Surgical Hx Reported Additional Past Surgical History / Comment(s): wisdom teeth extraction Past Anesthesia/Blood Transfusion Reactions: No Reported Reaction Past Psychological History: ADD/ADHD, Bipolar, Depression Smoking Status: Current some day smoker Past Alcohol Use History: Occasional Past Drug Use History: Marijuana <Aric Kendrick - Last Filed: 12/30/21 16:31> General Exam Limitations: no limitations General appearance: alert, in no apparent distress Head exam: Present: atraumatic, normocephalic, normal inspection Respiratory exam: Present: normal lung sounds bilaterally. Absent: respiratory distress, wheezes, rales, rhonchi, stridor Cardiovascular Exam: Present: regular rate, normal rhythm, normal heart sounds. Absent: systolic murmur, diastolic murmur, rubs, gallop, clicks Extremities exam: Present: other (Left wrist there is moderate swelling, neurovascular intact, left ankle there is moderate swelling the lateral portion, right knee superficial abrasion no other associated skeletal injury) <Aric Kendrick - Last Filed: 12/30/21 16:31> Course Vital Signs 12/30/21 12/30/21 12/30/21 15:19 16:11 16:15 Temperature 98 F Pulse Rate 88 80 91 Respiratory 18 18 16 Rate Blood Pressure 128/86 108/80 137/77 O2 Sat by Pulse 98 97 95 Oximetry 12/30/21 12/30/21 16:21 16:32 Temperature Pulse Rate 80 84 Respiratory 18 18 Rate Blood Pressure 138/97 131/89 O2 Sat by Pulse 97 97 Oximetry Procedures - [place] Protocol (Time Out) Procedure Performed:: left wrist reduction with conscious sedation Performing Provider: Nicanor Brownlee Nurse: Carmen Grimaldo Respiratory Therapist: Telma Parkinson Patient Identification (2 identifiers required): Chart, Verbal, Arm Band, Name, Birthdate, Medical Record Number Patient/Legal Religious Leader has Confirmed: Identity, Site, Procedure Site Marked: Not Applicable Site Verified With Patient/Guardian: Yes Final Confirmation: Procedure - Orthopedic Fracture Reduction Fracture #1 Consent Obtained: written consent Side: left Fracture Reduction Location: radius Analgesia: procedural sedation Technique: direct manipulation Post Reduction X-rays Demonstrate: acceptable reduction Post-Reduction Neuro Exam: intact Post-Reduction Vascular Exam: intact Splint Applied: Yes Patient Tolerated Procedure: well, no complications <Aric Kendrick - Last Filed: 12/30/21 16:31> - Procedural Sedation Procedural Sedation Start Time: 16:13 Procedural Sedation Stop Time: 16:35 Indications: fracture/dislocation reduction ASA Class: II Mallampati Airway Score: 2 Preparation: monitoring tech applied, pulse oximeter, capnometry used, supplemental O2 applied IV Propofol Dose (mgs): 120 Patient Tolerated Procedure: well, no complications <Nicanor Brownlee - Last Filed: 12/30/21 16:42> Medical Decision Making <Aric Kendrick - Last Filed: 12/30/21 16:31> - Medical Decision Making 41-year-old presented for a trip and fall. Patient had displaced radius fracture attempted reduction performed in emergency department under conscious sedation patient will follow-up with orthopedics Ankle x-ray does not reveal any acute fracture patient is left ankle sprain (Aric Kendrick) Disposition Is patient prescribed a controlled substance at d/c from ED?: No Time of Disposition: 16:28 <Aric Kendrick - Last Filed: 12/30/21 16:31> <Nicanor Brownlee - Last Filed: 12/30/21 16:42> Clinical Impression: Left ankle sprain, Distal radius fracture, left, Displaced fracture of left ulna styloid process, initial encounter for closed fracture Disposition: HOME SELF-CARE Instructions (If sedation given, give patient instructions): Arm Fracture in Adults (ED), Moderate Sedation (ED) Additional Instructions: Please return to the Emergency Department if symptoms worsen or any other concerns. Referrals: John Ferreira MD [Primary Care Provider] - 1-2 days Abida Barnhart DO [Doctor of Osteopathic Medicine] - 1-2 days
[2021-12-30] MEDS ORDERED: ACET/COD 300 MG/30 MG STARTER PACK 6 TAB BTL PO STA (16:28)
[2021-12-30] MEDS ORDERED: KETOROLAC 15 MG/ML 1 ML VIAL IVP STA (16:36)
--- NOTE | 2021-12-30 16:42 | XR ---
EXAMINATION TYPE: XR wrist limited LT DATE OF EXAM: 12/30/2021 COMPARISON: Today HISTORY: Post reduction TECHNIQUE: 2 views FINDINGS: There is comminuted intra-articular fracture of the distal radius. There is improved positi on of the fragments compared to initial exam. No dislocation. There is nondisplaced ulnar styloid pro cess fracture. Carpal bones are intact. Metacarpals are intact. IMPRESSION: Satisfactory reduction of the fractures. No complicating process.
[2021-12-30 17:29] VITALS: PULSE 85
[2021-12-30 17:39] VITALS: BP 113/81
== END 2021-12-30 17:45 | disposition home or self-care (01) ==
LOC: EC 15:18
DX: S93.402A Sprain of unspecified ligament of left ankle, initial encounter (principal); S52.502A Unspecified fracture of the lower end of left radius, initial encounter for closed fracture; S52.612A Displaced fracture of left ulna styloid process, initial encounter for closed fracture; Z23 Encounter for immunization; K21.9 Gastro-esophageal reflux disease without esophagitis; E07.9 Disorder of thyroid, unspecified; F31.9 Bipolar disorder, unspecified; F17.200 Nicotine dependence, unspecified, uncomplicated; F12.90 Cannabis use, unspecified, uncomplicated; Z79.890 Hormone replacement therapy; Z79.899 Other long term (current) drug therapy; W10.1XXA Fall (on)(from) sidewalk curb, initial encounter
CPT/HCPCS: 99284 ×2; 90471 ×2; 96374 ×2; 96375 ×4; 96361 ×2; 99152 ×2; 25565 ×2; 73100; 73110; 73610; 90715; J2270; J2405; J1885; J2704

== ENCOUNTER 2022-01-04 08:36 | Emergency (ER) | payer OTHER ==
[2022-01-04 08:50] VITALS: TEMP 98
[2022-01-04] MEDS ORDERED: KETOROLAC 15 MG/ML 1 ML VIAL IM STA (09:08)
--- NOTE | 2022-01-04 09:48 | ED ---
General Adult HPI - General Chief complaint: Fall Stated complaint: Rib pain Time Seen by Provider: 01/04/22 08:50 Source: patient, RN notes reviewed, old records reviewed Mode of arrival: ambulatory Limitations: no limitations - History of Present Illness Initial comments: This is a 41-year-old male presents emergency Department complaining of left-hair ed rib pain. Patient states he fell the other day and he has a fractured wrist which she needs surgery on. Patient states at the time his ribs did not hurt but since then he has a little bit of pain originates just coming back to make sure he doesn't have any fractured ribs. Patient denies shortness of breath he states it hurts take a deep breath. He has no difficulty breathing. Patient denies any anterior chest pain. Patient denies any other symptoms at this time. - Related Data Home Medications Medication Instructions Recorded Confirmed Cyclobenzaprine [Flexeril] 10 mg PO TID PRN 01/22/20 02/02/20 Ergocalciferol [Vitamin D2 50,000 unit PO MO 01/22/20 02/02/20 (DRISDOL)] Levothyroxine Sodium [Synthroid] 50 mcg PO DAILY 01/22/20 02/02/20 buPROPion XL [Wellbutrin XL] 300 mg PO DAILY 01/22/20 02/02/20 Omeprazole [PriLOSEC] 20 mg PO AC-BRKFST 02/02/20 02/02/20 Previous Rx's Medication Instructions Recorded Naproxen 250 mg PO TID #21 tablet 01/25/20 Nicotine 7Mg/24Hr Patch [Habitrol] 1 patch TRANSDERM DAILY #14 patch 01/25/20 Sulfamethox-Tmp 800-160Mg [Bactrim 2 tab PO BID #40 tab 01/25/20 DS 800-160 mg] Cephalexin [Keflex] 500 mg PO Q6HR #40 cap 05/19/20 Sulfamethox-Tmp 800-160Mg [Bactrim 1 each PO Q12HR #20 tab 05/19/20 Ds] Cephalexin [Keflex] 500 mg PO Q6HR 5 Days #20 cap 08/07/20 Sulfamethox-Tmp 800-160Mg [Bactrim 1 tab PO Q12HR 5 Days #10 tab 08/07/20 DS 800-160 mg] Ibuprofen [Motrin] 600 mg PO Q8HR PRN #30 tab 08/16/20 Ibuprofen [Motrin] 600 mg PO Q8HR PRN #30 tab 10/13/20 Allergies Allergy/AdvReac Type Severity Reaction Status Date / Time No Known Allergies Allergy Verified 01/04/22 08:50 Review of Systems ROS Statement: Those systems with pertinent positive or pertinent negative responses have been documented in the HPI. ROS Other: All systems not noted in ROS Statement are negative. Past Medical History Past Medical History: GERD/Reflux, Thyroid Disorder Additional Past Medical History / Comment(s): bipolar, ADHD, obesity History of Any Multi-Drug Resistant Organisms: None Reported Past Surgical History: No Surgical Hx Reported Additional Past Surgical History / Comment(s): wisdom teeth extraction Past Anesthesia/Blood Transfusion Reactions: No Reported Reaction Past Psychological History: ADD/ADHD, Bipolar, Depression Smoking Status: Current every day smoker Past Alcohol Use History: Occasional Past Drug Use History: Marijuana General Exam - General Exam Comments Initial Comments: GENERAL: Patient is well-developed and well-nourished. Patient is nontoxic and well- hydrated and is in mild distress. ENT: Neck is soft and supple. Neck has full range of motion without eliciting any pain. EYES: The sclera were anicteric and conjunctiva were pink and moist. Extraocular movements were intact and pupils were equal round and reactive to light. Eyelids were unremarkable. PULMONARY: Unlabored respirations. CARDIOVASCULAR: There is a regular rate and rhythm without any murmurs gallops or rubs. Patient has some slight tenderness in the lateral chest wall. ABDOMEN: Soft and nontender with normal bowel sounds. SKIN: Skin is clear with no lesions or rashes and otherwise unremarkable. NEUROLOGIC: Patient is alert and oriented x3. Cranial nerves II through XII are grossly intact. MUSCULOSKELETAL: Normal extremities with adequate strength and full range of motion. No lower extremity swelling or edema. No calf tenderness. PSYCHIATRIC: Normal psychiatric evaluation. Limitations: no limitations Course Vital Signs 01/04/22 08:48 Temperature 98 F Pulse Rate 79 Respiratory 20 Rate Blood Pressure 146/95 O2 Sat by Pulse 96 Oximetry Medical Decision Making - Medical Decision Making I interpreted the chest x-ray and rib films. There is no acute fracture noted there is no pneumothorax noted Disposition Clinical Impression: Fall, Chest wall contusion Disposition: HOME SELF-CARE Condition: Good Instructions (If sedation given, give patient instructions): Fall Prevention (ED), Chest Wall Pain (ED) Is patient prescribed a controlled substance at d/c from ED?: No Referrals: John eFrreira MD [Primary Care Provider] - 1-2 days Time of Disposition: 10:19
--- NOTE | 2022-01-04 10:12 | XR ---
EXAMINATION TYPE: XR ribs LT w pa chest xray DATE OF EXAM: 01/04/2022 9:30 AM INDICATION: Patient age:Male; 41 years old; Reason for study: Fall; COMPARISON: Chest radiograph 12/29/2021 TECHNIQUE: Frontal and oblique views of the left ribs with frontal chest radiograph. FINDINGS: The ribs have a normal appearance. No evidence of fracture. Overall, the lungs are clear. The cardiac silhouette is normal in size. The remaining osseous structures are intact. IMPRESSION RIBS: No acute osseous pathology.
[2022-01-04 10:31] VITALS: BP 142/81; PULSE 78; RESP 18
== END 2022-01-04 10:31 | disposition home or self-care (01) ==
LOC: EC 08:36
DX: S20.219A Contusion of unspecified front wall of thorax, initial encounter (principal); K21.9 Gastro-esophageal reflux disease without esophagitis; E07.9 Disorder of thyroid, unspecified; F31.9 Bipolar disorder, unspecified; F17.200 Nicotine dependence, unspecified, uncomplicated; F12.90 Cannabis use, unspecified, uncomplicated; Z79.899 Other long term (current) drug therapy; W19.XXXA Unspecified fall, initial encounter
CPT/HCPCS: 71101; 99283; 96372; J1885

== ENCOUNTER 2022-01-14 14:01 | Day surgery (SDC) | payer OTHER ==
[2022-01-10 11:13] VITALS: BMI 58.0
[~2022-01-14 14:01] MED LIST: ceFAZolin 3 GM in SODIUM CHLORIDE 0.9% 100 ML IVPB PRN
[2022-01-14 14:36] VITALS: TEMP 97
[2022-01-14] MEDS ORDERED: LACTATED RINGERS 1,000 ML IV ONE (14:43)
[2022-01-14] MEDS ORDERED: ONDANSETRON 4 MG/2 ML VIAL ONE (14:46)
[2022-01-14] MEDS ORDERED: ONDANSETRON 4 MG/2 ML VIAL IVP ONE (14:52)
[2022-01-14] MEDS ORDERED: DEXAMETHASONE SOD PHOSPHATE 4 MG/ML 1 ML VIAL IV ONE (14:53)
[2022-01-14] MEDS ORDERED: MIDAZOLAM 2 MG/2 ML VIAL IVP ONE (15:03)
[2022-01-14] MEDS ORDERED: PROPOFOL 10 MG/ML 20 ML VIAL IV ONE (15:39)
[2022-01-14] MEDS ORDERED: DEXAMETHASONE SOD PHOSPHATE 10 MG/ML 1 ML VIAL ONE (15:39)
[2022-01-14] MEDS ORDERED: fentaNYL (PF) 50 MCG/ML 2 ML AMP ONE (15:39)
[2022-01-14] MEDS ORDERED: ROPIVACAINE 5 MG/ML 30 ML VIAL ONE (15:39)
[2022-01-14] MEDS ORDERED: PHENYLEPHRINE-0.9% NACL SYG 1,000 MCG/10 ML SYRINGE ONE (15:39)
[2022-01-14] MEDS ORDERED: LIDOCAINE 2% INJ 20 MG/ML (2 ML VIAL) ONE (15:39)
[2022-01-14] MEDS ORDERED: MIDAZOLAM 2 MG/2 ML VIAL ONE (15:39)
--- NOTE | 2022-01-14 16:21 | P.ANPRN ---
Procedure Note - Anesthesia - Nerve Block Performed Left Supraclavicular Single Time Out Performed: Yes Date of Procedure: 01/14/22 Procedure Start Time: 15:02 Procedure Stop Time: 15:08 Location of Patient: PreOp Indication: Acute Post-Operative Pain, Analgesia, Requested by Surgeon Sedation Type: Sedate with meaningful contact maintained Preparation: Sterile Prep Position: Sitting Catheter: None Needle Types: Pajunk Needle Gauge: 21 Ultrasound used to visualize needle placement: Yes Ultrasound used to observe medication spread: Yes Injectate: 0.5% Ropivacaine (see comment for volume) (25cc + 10mg dexamethasone) Blood Aspirated: No Pain Paresthesia on Injection Noted: No Resistance on Injection: Normal Image Stored and Saved: Yes Events: Uneventful and Well Tolerated
--- NOTE | 2022-01-14 18:05 | P.OP ---
Date of Procedure: 01/14/22 Preoperative Diagnosis: 1. left distal radius fracture, four-part intra-articular 2. Acute left carpal tunnel Postoperative Diagnosis: Same Procedure(s) Performed: 1. Left distal radius open reduction internal fixation 2. 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 He sustained a left distal radius fracture that is intra-articular and displaced. He also states that he has numbness and tingling which has not subsided since the fracture. He has a history of some carpal tunnel and it was initially intermittent after the fall however it is becoming constant. We had a discussion about his treatment options and he would like to proceed with an open reduction internal fixation of the wrist and a carpal tunnel release. Description of Procedure: Patient, operative extremity, and procedure were identified in the preop holding area. After informed consent was obtained the patient received a regional block by the anesthesia team. He was then brought back to the operating room where the extremity is prepped and draped in normal sterile fashion with a tourniquet along the patient's brachium. After formal timeout was performed the tourniquet was inflated. Attention was first turned to the distal radius a longitudinal incision was made over the FCR tendon. Dissection was carried down to the tendon itself which was mobilized ulnarly. The floor of the FCR sub-sheath was then incised longitudinally. The flexor tendons were carefully swept aside to reveal the pronator quadratus. The pronator quadratus was then lifted Rama ulnar-based flap to reveal the fracture. The brachial radialis was identified and released in a stepwise fashion to relieve the deforming force. Reduction was then performed with the aid of a [place] elevator and a lobster claw. The volar locking plate was provisionally placed with K wires. Once the placement placement and reduction was confirmed on fluoroscopy the oblong hole screw in the proximal end of the plate was filled. The ulnar side of the distal holes were then filled with smooth locking pegs. The radial styloid piece was then compressed using a lobster claw. Variable angle smooth locking pegs were then inserted into the radial styloid piece. The construct was visualized directly and none of the pieces moved independently. The remaining 2 holes of the proximal end of the plate were filled. The reduction and hardware placement were again confirmed on fluoroscopy. The brachial radialis was repaired with 3- 0 Vicryl in a lengthened fashion and the pronator quadratus was repaired over the plate. Attention was then turned to the carpal tunnel. A longitudinal incision was made proximal to Lipscomb's cardinal line and in line with the radial aspect of the ring finger. Dissection was carried down through the palmar fascia and the transverse carpal ligament was released in its entirety under direct visualization. Complete release was confirmed with digital palpation proximally and visualization of the palmar fat pad distally. Tourniquet was then let down hemostasis was achieved and the wounds were closed in a layered fashion with 4-0 Monocryl and skin glue. Wounds were dressed with Adaptic 4 x 4's cast padding and a volar splint. Patient was aroused by the anesthesia team and brought back to PACU in stable condition
[2022-01-14 18:39] VITALS: BP 130/82; PULSE 74; RESP 17
== END 2022-01-14 18:58 | disposition home or self-care (01) ==
LOC: OR 14:01
PROVIDERS: ATTEND Orthopaedic Surgery Hand Surgery
DX: S52.572A Other intraarticular fracture of lower end of left radius, initial encounter for closed fracture (principal); G56.02 Carpal tunnel syndrome, left upper limb; W19.XXXA Unspecified fall, initial encounter
CPT/HCPCS: 25609; 64721; J2250; J1100 ×2; J0690; J2405; J3010; J2795; J2370; J2704; J2001; 64415; 76942

== ENCOUNTER → 2022-09-04 | Outpatient (CLI) | payer OTHER ==
[2022-09-04 16:15] LABS: % Iron Saturation 14.71 (15.00-50.00); T4, Free (Free Thyroxine) 0.94 ng/dL (0.80-1.80)
[2022-09-04 16:35] LABS: Hepatitis A Antibody IgM Nonreactive; Hepatitis B Core IgM Nonreactive; Hepatitis B Surface Antigen Nonreactive; Hepatitis C IgG Antibody Nonreactive
== END | disposition home or self-care (01) ==
LOC: LABWHC1 09:21
PROVIDERS: ATTEND Family Medicine
DX: E11.9 Type 2 diabetes mellitus without complications (principal); E78.2 Mixed hyperlipidemia
CPT/HCPCS: 36415; 80074; 82728; 83036; 83540; 83550; 84439

== ENCOUNTER → 2022-10-08 | Outpatient (CLI) | payer OTHER | LOC: CPPFTMAIN 08:40 | PROVIDERS: ATTEND Family Medicine | DX: J45.909 Unspecified asthma, uncomplicated (principal) | CPT/HCPCS: 94060; 94726; 94729 ==